=== PATIENT | male | born 2000 | race Hispanic/Latino ===

== ENCOUNTER 2019-09-29 15:59 | Inpatient (IN) ==
[2019-09-29] MEDS ORDERED: ZOFRAN IV ONE (16:21)
[2019-09-29] MEDS ORDERED: MORPHINE IV ONE (16:21)
--- NOTE | 2019-09-29 16:30 | PROVIDER DOCUMENTATION ---
HPI-Abdominal Pain/GI Problem - General Chief Complaint: Abdominal Pain Stated Complaint: ABD PAIN Time Seen by Provider: 09/29/19 16:06 Source: patient Allergies/Adverse Reactions: Patient Allergies Allergy/AdvReac Type Severity Reaction Status Date / Time No Known Allergies Allergy Verified 09/29/19 16:12 Home Medications: Home Medication List Medication Instructions Recorded Confirmed Last Taken Type NK [No Home Medications] 09/29/19 09/29/19 Unknown History - History of Present Illness-ABD Nature of Presenting Problems: Patient is a 18 yom who c/o RLQ abdominal pain since yesterday. Denies n/v/d, sick contacts, recent travel. Denies fever or any other complaints. Review of Systems - Adult - REVIEW OF SYSTEMS - ADULT Constitutional: reports: no symptoms reported Eyes: reports: no symptoms reported Ears, Nose, Mouth & Throat: reports: no symptoms reported Cardiovascular: reports: no symptoms reported Respiratory: reports: no symptoms reported Gastrointestinal: reports: see HPI Genitourinary: reports: no symptoms reported, other (denies testicular pain). denies: dysuria, discharge, frequency Musculoskeletal: reports: no symptoms reported Integumentary: reports: no symptoms reported Neurological: reports: no symptoms reported Psychiatric: reports: no symptoms reported Endocrine: reports: no symptoms reported Hematologic/Lymphatic: reports: no symptoms reported Allergic/Immunologic: reports: no symptoms reported All Other Systems: Reviewed and Negative Past History - Adult - PAST MEDICAL HISTORY-ADULT Review of Records: reports: Nursing Assessment Review, Medications Reviewed, Social history reviewed & non-contributory. Major Childhood Illnesses: reports: denies history Cardiovascular: reports: denies history Respiratory: reports: denies history Gastrointestinal: reports: denies history Genitourinary: reports: denies history Musculoskeletal: reports: denies history Neurological: reports: denies history Psychiatric: reports: denies history Endocrine/Immune: reports: denies history Other Conditions: reports: denies history - PRIOR SURGERIES/PROCEDURES Surgical/Procedure History: reports: none - IMMUNIZATION STATUS Childhood Immunizations: See Nurse Assessment Flu Vaccine: See Nurse Assessment - FAMILY HISTORY Family History: reviewed, not pertinent - SOCIAL HISTORY Smoking: non-smoker Substance Use: none/never Alcohol Use Frequency: never Physical Exam-General - PHYSICAL EXAM-ADULT Initial Vital Signs Reviewed: Yes - CONSTITUTIONAL General Appearance: alert, no apparent distress, cachetic. negative: lethargic, slow to respond - EYES Eyes: PERRL/EOMI - HEAD, EARS, NOSE, MOUTH & THROAT HENMT: normocephalic/atraumatic - NECK Neck: full range of motion, supple, normal inspection - RESPIRATORY Respiratory: chest non-tender, lungs clear, normal breath sounds, no pleuratic chest pain, no respiratory distress, no accessory muscle use - CARDIOVASCULAR Cardiovascular: normal peripheral pulses, regular rate, rhythm, no gallop, no murmur, tachycardia - GASTROINTESTINAL (ABDOMEN) Abdominal Exam: normal bowel sounds, soft, guarding (entire right side of abdomen, more in RLQ), tenderness (see note above), McBurney's point tenderness. negative: distended, rigid, mass - GENITOURINARY Male Genitalia: normal genitalia. negative: inguinal lymphadenopathy, scrotal swelling, urethral discharge, inguinal tenderness, testicular tenderness Rectal Exam: normal rectal tone, mass (rectal exam performed by Dr. Mcdonald who reports rectal mass). negative: black stool, blood streaked stool - MUSCULOSKELETAL Back Exam: normal inspection Extremity: normal range of motion, non-tender, normal gait, normal inspection - SKIN Integumentary: normal color, warm/dry. negative: cyanosis, diaphoresis, jaundice, mottled, pallor - NEUROLOGIC Neurologic: grossly normal, no motor/sensory deficits - PSYCHIATRIC Psych/Mental Status: normal mood/affect, normal thought content, normal thought process, oriented x 3 Progress - PLAN OF CARE/RESULTS Progress/Plan/Lab Results: Vital Signs - 8 hr 09/29/19 16:03 Temperature 98.4 F Pulse Rate 126 H Respiratory Rate 20 Blood Pressure 105/63 O2 Sat by Pulse Oximetry 98 Orders Category Date Time Status NEWS Score 2-4:Order NEWS Lactate Series NOW Care 09/29/19 16:[address] ABD/PELVIS W/IV CONT ONLY [CT] Stat Exams 09/29/19 16:21 Ordered BLOOD CULTURE [BLDCUL] Stat Lab 09/29/19 16:21 Uncollected CBC WITH DIFF [HEME] Stat Lab 09/29/19 16:21 Ordered COMPREHENSIVE METABOLIC PANEL [CHEM] Stat Lab 09/29/19 16:21 Uncollected LACTATE, PLASMA [CHEM] Lab 09/29/19 16:15 Uncollected LACTATE, PLASMA [CHEM] Lab 09/29/19 19:15 Uncollected LACTATE, PLASMA [CHEM] Lab 09/29/19 22:15 Uncollected LIPASE [CHEM] Stat Lab 09/29/19 16:21 Uncollected UA NIMS W/REFLEX CULT [URINALYSIS] Stat Lab 09/29/19 16:21 Uncollected Morphine Med 09/29/19 16:21 Discontinued 4 mg IV NOW ONE Ondansetron [Zofran] Med 09/29/19 16:21 Discontinued 4 mg IV NOW ONE EKG [EKG] Stat Ther 09/29/19 16:08 Ordered Result Diagrams: 09/29/19 16:25 09/29/19 16:25 - REASSESSMENT Reassessment #1 Time Reassessed: 19:09 Status: improving (Pain improved with meds. Dr. Drake evaluated pt in the ED. Discussed results with pt. Pt in agreement with plan to admit.) - EKG 1 Time of EKG reading by physician:: 16:10 EKG Read and Signed by:: Clemente Mcdonald EKG Interpretation (*Must complete 3 of following elements*): Abnormal Rate: 136 Rhythm: sinus tachycardia QRS: normal ST Wave: normal - CT/MRI 1 CT Study: Abdomen, Pelvis ([facility] - [address] [place], [place] [id number] [place] [address] [address] [place] [address] Department of Imaging Patient: LUDWIG BONILLADM Date: 09/29/19MR#: [id number] : 2000ADM Status: [facility]#: [id number] Age/Sex: 18/MRoom/Bed: Loc: P.ED Ordering Physician: Christopher Mathews Family Physician: None,PCP Reason for Procedure: RLQ pain/tenderness ___ Signed EXAM: CT ABD/PELVIS W/IV CONT ONLY INDICATION: RLQ pain/tenderness TECHNIQUE: This exam was performed using automated exposure control, adjustment of mA or kV according to patient size, and/or use of iterative reconstruction technique. COMPARISON: None. FINDINGS: There is an extremely large and irregular mass seen in the lower abdomen and pelvis. It arises from the wall of a loop of small bowel. There is fluid and patchy gas through the center of the mass corresponding to the original small bowel lumen. It measures approximately 16.0 x 9.8 x 16.9 cm. The top differential conside ration is small bowel lymphoma. There are fluid-filled loops of small bowel throughout the abdomen with a few air-fluid levels suggesting that it is causing at least partial obstruction. The mass is also obstructing both ureters and there is associated bilateral hydronephrosis. There is no splenomegaly. The liver and gallbladder are unremarkable. The pancreas is grossly unremarkable. The adrenal glands are not well-visualized. The urinary bladder is partially distended. The visualized portion is unremarkable. There are a few small shotty inguinal lymph nodes. The visualized bony structures are unremarkable. IMPRESSION: Very large mass that appears to arise from the wall of a loop of small bowel involving the lower abdomen and pelvis that is causing at least a partial bowel obstruction and is obstructing both ureters resulting in hydronephrosis bilaterally. Small bowel lymphoma is the top differential consideration. A gastrointestinal stromal tumor would be very unlikely in this age group. Electronically signed by Aramis Leal 09/29/2019 6:26 PM 09/29/19 1826 Interpreting Physician: Aramis Leal MD Dictated Date/Time: 09/29/19 1806 cc: Christopher Mathews; None,PCP) - CONSULTS/PCP/HOSPITALIST Notification #1 *Consult/PCP/Hospitalist*: Dr. Drake Time Discussed: 18:40 Reason/Comments: partial SBO, abdominal mass Consult Disposition: Will see in ED (Dr. Mcdonald spoke with income tax consultant) #2 Consult: Dr. Nguyen Time Discussed: 18:43 Reason/Comments: admit- abdominal mass, anemia Consult Disposition: Will see in ED, Admit Departure - Departure Date of Disposition Decision: 09/29/19 Time of Disposition Decision: 18:00 DIAGNOSIS: Pelvic mass, Pancytopenia Abdominal mass Qualifiers: Abdominal location: unspecified location Qualified Code(s): R19.00 - Intra- abdominal and pelvic swelling, mass and lump, unspecified site Anemia Qualifiers: Anemia type: unspecified type Qualified Code(s): D64.9 - Anemia, unspecified Sepsis Qualifiers: Sepsis type: sepsis due to unspecified organism Sepsis acute organ dysfunction status: unspecified Qualified Code(s): A41.9 - Sepsis, unspecified organism Abdominal pain Qualifiers: Abdominal location: unspecified location Qualified Code(s): R10.9 - Unspecified abdominal pain Disposition: ADMITTED INPATIENT 09 Certified Medical Emergency: Emergent Condition: Serious Referrals and Follow-Ups: None,PCP [Primary Care Provider] - - Critical Care Note This patient required my direct & personal management of CC.: Yes Total Time (mins): 45 Critical Care Statement: This patient required my direct personal management to treat or rule out processes, the absence of which, could potentiallly result in sudden, clinically significant life or limb threatening deterioration. Attestation - Physician/ STEVE Attestation Patient care was provided by Advanced Practice Provider:: Yes Advanced Practice Provider:: Christopher Mathews Advanced Practice Provider documentation review:: The Mid-level provider documentation, treatment plan and medical decision making was reviewed by the physician who agrees with all treatment and medical decision making by the P. The physician spent face to face time with patient:: Yes (Dr. Mcdonald) Advanced Practice Provider documentation review:: Supervising physician onsite and consulted in the evaluation and care of this patient. The physician did have a face to face encounter with the patient.
[2019-09-29] MEDS ORDERED: NS 1,000 ML IV ONE ×3 (16:37→21:00)
[2019-09-29 17:16] LABS: AGAP 18; ALBUMIN 3.3 g/dL (3.5-5.0); ALKALINE PHOSPHATASE 189 U/L (32-122); BUN 10 mg/dL (8-22); CALCIUM 8.3 mg/dL (8.8-10.2); CHLORIDE 92 mmol/L (98-107); COSMO 262; CREATININE 0.7 mg/dL (0.7-1.2); ESTIMATED GFR > 60; GLUCOSE 99 mg/dL (70-104); GOT 135 U/L (10-34); GPT 66 U/L (10-44); LIPASE 16 U/L (13-60); POTASSIUM 4.4 mmol/L (3.5-5.1); SODIUM 131 mmol/L (136-145); TCO2 22 mmol/L (25-35); TOTAL PROTEIN 7.2 g/dL (6.3-8.3)
[2019-09-29 17:17] LABS: BASO# 0.03 X1000 (0.0-0.2); BASO% 0.1 % (0.0-0.8); EOS# 0.07 X1000 (0.0-0.7); EOS% 0.3 % (0.0-10.0); HEMATOCRIT 17.4 % (42.0-52.0); IMM GRAN# 0.16 X1000 (0.0-0.04); IMM GRAN% 0.7 % (0.0-0.5); LYMPH# 2.87 X1000 (1.2-3.4); LYMPH% 13.3 % (20.5-51.1); MCH 23.5 PG (27-31); MCHC 28.7 g/dL (33-37); MCV 81.7 FL (81-99); MONO% 12.5 % (1.7-9.3); MPV 8.8 FL (7.4-10.4); NEUT% 73.1 % (42.2-75.2); PLT 678 X1000 (130-400); RBC 2.13 XMIL (4.7-6.1); RDW 17.1 % (11.5-14.5); WBC 21.63 X1000 (4.8-10.8)
[2019-09-29 17:31] LABS: RETIC% 5.02 % (0.8-2.1); RETIC-HE 22.2 PG (28.2-36.6)
--- NOTE | 2019-09-29 17:45 | EKG Report ---
Test Performed on : 09/29/2019 4:09:42 PM Test Reason : tachycardia Blood Pressure : / mmHG Vent. Rate : 136 BPM Atrial Rate : 136 BPM P-R Int : 128 ms QRS Dur : 064 ms QT Int : 280 ms P-R-T Axes : 062 063 062 degrees QTc Int : 421 ms Sinus tachycardia. Otherwise normal ECG No previous ECGs available Unconfirmed Result
[2019-09-29] MEDS ORDERED: NS IV ONE ×2 (17:54)
[2019-09-29] MEDS ORDERED: ZOSYN 3.375 GM in NS 50 ML IV ONE (17:55)
[2019-09-29 18:00] LABS: OCCULT BLOOD 1 NEGATIVE (NEGATIVE)
[2019-09-29] MEDS ORDERED: LEVOPHED 8 MG in D5 1/2 NS 250 ML IV SCH (18:00)
[2019-09-29] MEDS ORDERED: PITRESSIN 40 UNIT in NS 100 ML IV SCH (18:00)
[2019-09-29] MEDS ORDERED: EPINEPHRINE 4 MG in NS 250 ML IV SCH (18:00)
[2019-09-29 18:19] LABS: URINE SOURCE CLEAN CATCH
[2019-09-29 18:24] LABS: INR 1.17; PROTIME 15.5 Seconds (11.0-16.0)
[2019-09-29 18:25] LABS: BILIRUBIN URINE NEGATIVE (NEGATIVE); BLOOD URINE NEGATIVE (NEGATIVE); COLOR YELLOW; GLUCOSE URINE NEGATIVE (NEGATIVE); KETONE URINE NEGATIVE (NEGATIVE); LEUKOCYTES URINE NEGATIVE (NEGATIVE); NITRITE URINE NEGATIVE (NEGATIVE); PH URINE 6.5; PROTEIN URINE 50 mg/dL (NEGATIVE); SP GRAVITY URINE 1.022; TURBIDITY URINE HAZY (CLEAR); UROBILINOGEN URINE 3 mg/dL (NORMAL)
[2019-09-29 18:25] LABS: PTT 31.3 Seconds (22.3-41.8)
--- NOTE | 2019-09-29 18:29 | Diag Imaging Result Doc PS360 ---
EXAM: CT ABD/PELVIS W/IV CONT ONLY INDICATION: RLQ pain/tenderness TECHNIQUE: This exam was performed using automated exposure control, adjustment of mA or kV according to patient size, and/or use of iterative reconstruction technique. COMPARISON: None. FINDINGS: There is an extremely large and irregular mass seen in the lower abdomen and pelvis. It arises from the wall of a loop of small bowel. There is fluid and patchy gas through the center of the mass corresponding to the original small bowel lumen. It measures approximately 16.0 x 9.8 x 16.9 cm. The top differential consideration is small bowel lymphoma. There are fluid-filled loops of small bowel throughout the abdomen with a few air-fluid levels suggesting that it is causing at least partial obstruction. The mass is also obstructing both ureters and there is associated bilateral hydronephrosis. There is no splenomegaly. The liver and gallbladder are unremarkable. The pancreas is grossly unremarkable. The adrenal glands are not well-visualized. The urinary bladder is partially distended. The visualized portion is unremarkable. There are a few small shotty inguinal lymph nodes. The visualized bony structures are unremarkable. IMPRESSION: Very large mass that appears to arise from the wall of a loop of small bowel involving the lower abdomen and pelvis that is causing at least a partial bowel obstruction and is obstructing both ureters resulting in hydronephrosis bilaterally. Small bowel lymphoma is the top differential consideration. A gastrointestinal stromal tumor would be very unlikely in this age group. Electronically signed by Aramis Leal 09/29/2019 6:26 PM
--- NOTE | 2019-09-29 18:34 | Diag Imaging Result Doc PS360 ---
EXAM: CHEST-1 VIEW INDICATION: sepsis protocol TECHNIQUE: One view COMPARISON: 07/29/2018 FINDINGS: The lungs are grossly clear. There is no discrete pleural fluid collection or pneumothorax. The cardiomediastinal silhouette and central vasculature are grossly unremarkable. IMPRESSION: No evidence of acute pathology by plain radiograph. Electronically signed by Aramis Leal 09/29/2019 6:32 PM
[2019-09-29 18:36] LABS: LYMPHS 13 % (21-51); MONO 13 % (1-9); SEGS 74 % (42-75)
[2019-09-29 18:37] LABS: UR EPITHELIAL CELLS <10 /HPF (<10); URINE BACTERIA NEGATIVE /HPF; URINE RBC <10 /HPF (<10); URINE WBC <10 /HPF (<10)
[2019-09-29 18:58] LABS: URINE CASTS NONE SEEN; URINE CRYSTALS NONE SEEN; URINE SMALL ROUND CELLS NONE SEEN; URINE YEAST NONE SEEN
[2019-09-29] MEDS ORDERED: DILAUDID IV PRN (19:28)
[2019-09-29] MEDS ORDERED: NS 1,000 ML ONE (19:33)
[2019-09-29] MEDS ORDERED: ZOFRAN IV PRN (19:33)
--- NOTE | 2019-09-29 20:00 | GENERAL SURGERY CONSULTATION ---
DATE: 09/29/2019 REQUESTING PHYSICIAN: Emergency Department. REASON FOR CONSULTATION: Abdominal mass. HISTORY OF PRESENT ILLNESS: A 18-year-old gentleman who presented with a day history of right lower quadrant abdominal pain. Denied nausea, vomiting, sick contacts, recent travel. He says the bowel movements have been normal. He was seen emergency department, had a CT scan that showed a 16 cm mass. The concern is that it is rising from a small bowel causing significant compression of the right his pelvis transmitting hydronephrosis to his kidneys bilaterally and it looks like it is obstructing his sigmoid colon. He is also noted to be significantly anemic, but he was Hemoccult negative. PAST MEDICAL HISTORY: None. PAST SURGICAL HISTORY: None. SOCIAL: Nonsmoker. ALLERGIES: None reported. HOME MEDICATIONS: None. FAMILY HISTORY: Reviewed with the patient and noncontributory. REVIEW OF SYSTEMS: A full 14 systems reviewed are negative except those specified in HPI. PHYSICAL EXAMINATION: Vital Signs: Patient is currently afebrile. He is tachycardic in the 130s. Blood pressure 104/49. General Exam: Cachectic looking gentleman, looks stated age. HEENT: Normocephalic, atraumatic. Pupils equal, round, reactive to light. Mucous membranes moist. Oropharynx benign. Neck: Supple. Trachea midline. Cardiovascular: Regular rate and rhythm. Lungs: Grossly clear. Abdomen: Soft. A palpable mass noted in the pelvis. Some tenderness in the right lower quadrant. No peritoneal signs. Extremities: Moves all extremities. Neurologic: Grossly intact. Skin: No signs of jaundice. Vascular: All extremities perfused. Digital Rectal Exam: There is what appears to be a mass either in the rectum or protruding down to the rectum. LABORATORY: White blood count 21, hematocrit 17, hemoglobin 5, platelet count 678,000. Remainder of labs reviewed. CT scan reviewed and noted above. ASSESSMENT AND PLAN: A 18-year-old gentleman with pelvic mass. Pelvic mass. At this time, we will get him admitted across town and resuscitate him. This does appear to be potentially coming from the small bowel, although, it is really hard to see on the CT scan. We may have to review with the radiologist in person tomorrow. We will go ahead and consult Urology because I think he is probably going to at least stents. There is a high degree of concern he is going to need exploratory laparotomy and require some degree of significant small bowel resection. If not, pelvic exoneration depending on how stuck everything is. I had a discussion with the patient about this possibility and that he may need an ostomy. He is aware, but again, we will try to resuscitate him and see how he does for the course tonight and plan for surgical intervention in the morning. cc: Juanito Drake MD
[2019-09-29] MEDS ORDERED: TYLENOL PO ONE (20:09)
[2019-09-29] MEDS ORDERED: VANCOMYCIN IV PER PHARMACY MISC SCH (20:15)
[2019-09-29 20:32] LABS: IRON SATURATION 4 %; TIBC 156 ug/dL
[2019-09-29 20:33] LABS: TOTAL IRON 7 ug/dL (53-167); UNBOUND IRON 149 ug/dL (112-346)
[2019-09-29] MEDS ORDERED: VANCOMYCIN 1,700 MG in NS 250 ML IV ONE (22:00)
[2019-09-29] MEDS: PRILOSEC PO SCH (22:49)
[2019-09-29 23:35] LABS: FERRITIN 680 ng/mL (30-400)
--- NOTE | 2019-09-29 23:49 | HISTORY AND PHYSICAL ---
PRIMARY CARE PHYSICIAN: No primary care physician. REASON FOR ADMISSION: One-day history of right lower quadrant pain. HISTORY OF PRESENT ILLNESS: Mr. Nolan Kenyon is a 18-year-old male with no significant past medical history. Comes in today complaining of sudden cramping, constant right lower quadrant pain, nonradiating which got worse whenever he tried to move. No relieving factors. No fever. No chills. No altered bowel movements. No bleeding from any orifice. No melanotic stools. No genitourinary complaints. No cardiorespiratory complaints. No neurological complaints. No polyuria or polydipsia. Says that he subjectively has lost some weight as his clothes fit more loosely on him. He denies any nausea or vomiting. He denies any dizziness or shortness of breath. No palpitations. No facial flushing. Currently not on any medication. REVIEW OF SYSTEMS: Twelve system review was done. Positive findings per HPI. ALLERGIES: None. MEDICATIONS: None. SURGERIES: None. FAMILY HISTORY: None. SOCIAL HISTORY: None. LABORATORY WORK: The patient's labs are as follows: White count is 21,000, hemoglobin and hematocrit 5 and 17, platelet count is 678,000 with 13% monocytes. Sodium 131, BUN 10, creatinine 0.7. Iron 7, TIBC 156, 4% saturation. Lactate normal. Lipase normal. AST 135, ALT 66, alkaline phosphatase 189. s normal. Urinalysis, protein is 50. CT abdomen showed a very large mass appearing to arise from the wall of the small bowel involving the lower abdomen and pelvis causing partial bowel obstruction and is obstructing both ureters hydronephrosis bilaterally. Small bowel lymphoma possible versus GIST tumor as possible differentials. Chest film, no acute pathology noted. PHYSICAL EXAMINATION: GENERAL: Thin male. VITAL SIGNS: Temperature of 101.4 degrees, pulse rate was 121, respiratory rate 16, blood pressure 106/65, 100% on room air. He is alert and oriented to person place and time Normal mood and affect. HEENT: Head is normocephalic, atraumatic. Eyes, BLAIR, EOMI. He is anicteric and mildly pale. ENT and oropharynx exam are grossly normal. No central cyanosis. NECK: Supple. There are a few shotty mobile lymph nodes in the supraclavicular, cervical, posterior cervical chain and axillary chain. CHEST: Clear when auscultated in both lung ramirez. CARDIOVASCULAR: First and second heart sounds are heard. The 1st heart sound is very loud and possible ejection systolic murmur in the pulmonic area. Rhythm is regular. No gallops. ABDOMEN: Scaphoid, soft with tenderness confined to the right lower quadrant area and I cannot appreciate any mass on deep palpation although the patient was voluntarily guarding. No rebound appreciated. Bowel sounds are hypoactive. RECTAL: Exam deferred at this time. EXTREMITY: The patient has good distal pulse volumes, regular, symmetrical. No edema, clubbing or cyanosis. NEUROLOGICAL: Exam is normal. SKIN: Intact. No breakdown, lesion or erythema. Skin exam is grossly normal. ASSESSMENT: 1. 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 2. Anemia, iron deficiency anemia probably secondary to a chronic GI blood loss from #1. 3. Elevated transaminases. Etiology yet to be determined, remote possibility of metastatic disease to liver. 4. Obstructive uropathy. PLAN: Dr. Drake has seen patient and we have consulted Dr. Romero due to the fact the patient has obstructive uropathy from this mass and Dr. Drake will also to consult Dr. Mireles. We will start patient on empiric antibiotics. Treat patient symptomatically pending a formal plan for this patient. The patient has scattered lymphadenopathy in the aforementioned areas in my exam and if tissue diagnosis may be a problem, which I doubt, these alternative sites could be, especially in the axilla, may be alternative and may also assist in staging and I think rest of anemia workup has been ordered and will need to be followed up. CEA was also ordered although I doubt this is going to be elevated. cc: Jarod Maradiaga MD [facility]ITALConrado
[2019-09-30] MEDS: ZOSYN 3.375 GM in NS 50 ML IV SCH ×4 (00:45→17:32)
--- NOTE | 2019-09-30 06:40 | GENERAL SURGERY PROGRESS NOTE ---
DATE: 09/30/2019 SUBJECTIVE: The patient seems to be doing a little bit better. He has been resuscitated. His heart rate seems to be improving. OBJECTIVE: Vital Signs: The patient is currently afebrile. Vital signs are stable. General Examination: No acute distress. HEENT: Normocephalic and atraumatic. Pupils equal, round, reactive to light. Mucous membranes moist. Oropharynx benign. Neck: Supple. Trachea midline. Cardiovascular: Regular rate and rhythm. Lungs: Grossly clear. Abdomen: Soft. Less tender. Mass still palpated in the lower abdomen. ASSESSMENT/PLAN: A 18-year-old gentleman with a large pelvic mass. Pelvic mass. At this time, it does look like it is potentially coming from small bowel. We will discuss with the radiologist. We will discuss with the urologist. We will plan on exploratory laparotomy today. He is resuscitated and I think we can get it done here this morning. I discussed with him the risks, benefits, and alternatives of the procedure, risks including, but not limited to bleeding, infection, risk of anesthesia, risk of small bowel injury, colonic injury, risk of anastomotic leak, risk of needing a colostomy, risk of injury to surrounding structures including his ureters, but we will try to get urology to see him and placed stents. Discussed that other structures down in his pelvis could be injured. He voiced understanding and wishes to proceed. cc: Juanito Drake MD
[2019-09-30 07:01] LABS: AGAP 14; ALB/GLOB RATIO 0.8; ALBUMIN 2.7 g/dL (3.5-5.0); ALKALINE PHOSPHATASE 161 U/L (32-122); BUN 11 mg/dL (8-22); CALCIUM 8.6 mg/dL (8.8-10.2); CHLORIDE 100 mmol/L (98-107); COSMO 266; CREATININE 0.7 mg/dL (0.7-1.2); ESTIMATED GFR > 60; GLUCOSE 75 mg/dL (70-104); GOT 40 U/L (10-34); GPT 45 U/L (10-44); POTASSIUM 3.9 mmol/L (3.5-5.1); SODIUM 134 mmol/L (136-145); TCO2 20 mmol/L (25-35); TOTAL BILIRUBIN 1.36 mg/dL (0.20-1.00); TOTAL PROTEIN 6.2 g/dL (6.3-8.3)
[2019-09-30 07:06] LABS: BASO# 0.04 X1000 (0.0-0.2); BASO% 0.1 % (0.0-0.8); EOS# 0.13 X1000 (0.0-0.7); EOS% 0.5 % (0.0-10.0); HEMATOCRIT 25.7 % (42.0-52.0); HEMOGLOBIN 7.8 g/dL (14.0-18.0); IMM GRAN# 0.27 X1000 (0.0-0.04); LYMPH# 1.82 X1000 (1.2-3.4); LYMPH% 6.8 % (20.5-51.1); MCH 24.9 PG (27-31); MCHC 30.4 g/dL (33-37); MCV 82.1 FL (81-99); MONO# 3.28 X1000 (0.11-0.59); MONO% 12.2 % (1.7-9.3); MPV 8.9 FL (7.4-10.4); NEUT# 21.42 X1000 (1.4-6.5); NEUT% 79.4 % (42.2-75.2); PLT 611 X1000 (130-400); RBC 3.13 XMIL (4.7-6.1); RDW 16.4 % (11.5-14.5); RETIC% 3.95 % (0.8-2.1); RETIC-HE 27.5 PG (28.2-36.6); WBC 26.96 X1000 (4.8-10.8)
[2019-09-30] MEDS ORDERED: ROBINUL ONE (07:37)
[2019-09-30] MEDS ORDERED: DIPRIVAN 1% ONE (07:37)
[2019-09-30] MEDS ORDERED: XYLOCAINE-MPF 2% ONE (07:37)
[2019-09-30] MEDS ORDERED: QUELICIN (DOSE) ONE (07:37)
[2019-09-30 07:58] LABS: BANDS 8 % (0-1); HYPOCHROM 1+; LYMPHS 10 % (21-51); MONO 8 % (1-9); SEGS 74 % (42-75)
[2019-09-30] MEDS ORDERED: MARCAINE 0.5% PF ONE (08:09)
[2019-09-30] MEDS ORDERED: EXPAREL 1.3% ONE (08:10)
[2019-09-30] MEDS ORDERED: MARCAINE 0.25% PF ONE (08:12)
[2019-09-30] MEDS ORDERED: VERSED ONE ×2 (08:26→12:12)
[2019-09-30] MEDS ORDERED: ALBUMIN 25% ONE (08:46)
[2019-09-30] MEDS ORDERED: NEOSPORIN OINTMENT PACKET ONE (09:03)
--- NOTE | 2019-09-30 09:58 | Diag Imaging Result Doc PS360 ---
FLUROSCOPY CYSTO - 09/30/2019 INDICATION: STENTS TECHNIQUE: The exam was performed by the patient's urologist. Total fluoroscopy time was 9.8 seconds. Three images were obtained. COMPARISON: CT from 09/29/2019 FINDINGS: The ureters were injected. This demonstrated bilateral hydronephrosis. Bilateral nephroureteral stents were placed in good position. IMPRESSION: Bilateral hydronephrosis. No complication. Electronically signed by Martinez Baker 09/30/2019 9:56 AM
[2019-09-30] MEDS ORDERED: ZOFRAN ONE ×2 (10:00→12:27)
[2019-09-30] MEDS ORDERED: VANCOMYCIN 1,350 MG in NS 250 ML IV SCH (10:00)
[2019-09-30] MEDS ORDERED: DECADRON ONE (10:00)
[2019-09-30] MEDS ORDERED: ZEMURON ONE (10:01)
[2019-09-30] MEDS ORDERED: NEO-SYNEPHRINE ONE (10:11)
[2019-09-30] MEDS ORDERED: DILAUDID ONE (10:28)
[2019-09-30] MEDS ORDERED: OFIRMEV 1000 MG/ISOTONIC SOLN 1,000 MG/100 ML BOTTLE ONE ×2 (11:00→12:29)
[2019-09-30] MEDS ORDERED: BRIDION ONE (11:42)
[2019-09-30] MEDS ORDERED: PHENERGAN ONE (11:47)
--- NOTE | 2019-09-30 12:23 | OPERATIVE NOTE ---
PROCEDURE DATE: 09/30/2019 PREOPERATIVE DIAGNOSIS: Small bowel mass. POSTOPERATIVE DIAGNOSIS: Small bowel mass (possible lymphoma). PROCEDURES PERFORMED: 1. Exploratory laparotomy. 2. Right hemicolectomy with stapled [id number] functional end-to-end anastomosis. 3. Tumor debulking. 4. Rigid proctoscopy. SURGEON: Juanito Drake MD PHOTOENGRAVING PHOTOGRAPHER: Inocencio Person MD; Dr. Person assisted with the entirety of the case. His presence was crucial to completion of the case. FINDINGS: Questionable lymphoma on pathology, which was bulky in nature and stuck to the pelvis. It was also very friable and extended from it sounded like the side and felt like the side of the small bowel in the terminal ileum. COMPLICATIONS: None at time of dictation. ESTIMATED BLOOD LOSS: 500 mL. SPECIMEN REMOVED: Terminal ileum and right colon mass. BRIEF HISTORY: A 18-year-old gentleman who came to [facility] last night with abdominal pain and anemia. He is noted to have a mass that is near obstructing. He also had ureteral issues with hydronephrosis bilaterally. It was felt that he needed surgery. The risks, benefits, and alternatives were discussed and documented in the chart, all questions answered. DESCRIPTION OF PROCEDURE: After informed consent was obtained, the patient was brought to the operative theatre, transferred to the operating table and placed in the supine position. General endotracheal anesthesia was then performed without complication. A formal time out was then performed confirming the patient and procedure. At that time, Dr. Guzmán with Urology performed a cystoscopy and placed stents. You can see his dictation for further details. At that point, we prepped the abdomen for a TAP block, which anesthesia did without complication. We then prepped and draped the abdomen in a sterile fashion, placed the patient in lithotomy. After a second time out, confirming the patient and procedure, we turned our attention to the abdomen, made a standard midline incision to enter into the abdomen. We found this mass down in the pelvis. It was significantly adherent to several structures down the pelvis. It took us some time with meticulous dissection to get the mass freed up. We did get into the small bowel secondary to the friable aspect of the tumor burden in the small bowel, and we drained some succus, but we irrigated out the abdomen. We mobilized the right colon fully while preserving the duodenum. We transected at the ascending colon. We also transected in the mid ileum to distal ileum. We dissected the mass free. We had to do a lot of finger fracturing. It was intimately connected to the sigmoid colon, the ureters, the iliac arteries, the bladder, and down the pelvis all the way down to the distal rectum to the point that we did not think we could safely remove without injuring several of these structures. We were able to feel the ureteral stents, especially on the right side, and we were able to preserve these structures, but it was very close to other major structures and we felt that all we could do at this point was tumor debulking, which we did as much as we could. We did send the specimen down for pathology, which showed potential for lymphoma. We removed the mass after transecting in the terminal ileum and the right colon. We debulked a significant amount, but there is still a good amount of tumor burden in the abdomen. We irrigated out the abdomen. We examined the structures. I do not think we heard anything, but again felt as though if we did any further dissection we would. We then performed a stapled anastomosis. Given the close proximity to the sigmoid colon and concern for possible injury we performed a rigid proctoscopy. I inserted the proctoscope into the rectum. We placed the sigmoid colon under water and filled the rectum with air. We did not see any leak to suggest injury to the rectum or sigmoid colon. We oversewed the staple line, closed the mesenteric defect. We then irrigated out the abdomen. We elected to not leave a drain down in the pelvis because we thought we might feed the drain site given the debulking aspect. We then closed the fascia with a running loop PDS started on either side and then closed the skin. The patient tolerated the procedure well. cc: MD RACHEL Luna
[2019-09-30] MEDS ORDERED: DILAUDID PCA VIAL ONE (12:27)
[2019-09-30] MEDS ORDERED: TORADOL ONE (12:27)
--- NOTE | 2019-09-30 12:36 | OPERATIVE NOTE ---
PROCEDURE DATE: 09/30/2019 PREOPERATIVE DIAGNOSES: 1. Pelvic mass. 2. Bilateral hydronephrosis. POSTOPERATIVE DIAGNOSES: 1. Pelvic mass. 2. Bilateral hydronephrosis. PROCEDURE PERFORMED: 1. Cystoscopy. 2. Bilateral retrograde pyelograms. 3. Bilateral ureteral stent placement. SURGEON: Chris Guzmán MD. ASSISTANTS: None. COMPLICATIONS: None. BLOOD LOSS: Minimal. DRAINS: Bilateral 6 x 24 cm ureteral stent. ANESTHESIA: General endotracheal intubation. SPECIMENS REMOVED: None. INDICATIONS FOR PROCEDURE: Mr. Kenyon is a 18-year-old who presented to the emergency room complaining of right abdominal pain. A CT scan was performed which showed a large pelvic mass measuring over 16 cm, causing mass effect on bilateral ureters. Urology was consulted due to bilateral hydronephrosis. The patient had a normal renal function with a creatinine of 0.7. In talking with Dr. Drake, he desired placement of ureteral stents in preparation for open exploration and resection of pelvic mass. Risks, benefits, and alternatives to the procedure were discussed with the patient in the preop holding area and he elected to proceed. DESCRIPTION OF PROCEDURE: After informed consent was obtained, the patient was brought to the operating room and placed on the operating table in the supine position. The patient received preoperative antibiotics and underwent general endotracheal intubation. He was positioned to a dorsal lithotomy position, was prepped and draped in the usual sterile fashion. A preoperative time-out was performed with all parties in agreement including anesthesia, surgical, and nursing staff. At which point I inserted a 21-Peruvian cystourethroscope through the urethra and into the bladder. The patient had a normal urethra. There was a small prostate with no evidence of obstruction. Once inside of the bladder, the entirety of the bladder was inspected with no diverticulum, cellules, or trabeculations. There was a slight mass effect posteriorly related to a mass external to the bladder itself. The ureteral orifices were inferior and likely present inferiorly due to the mass effect. Once the entirety of the bladder was inspected with no masses in the bladder itself, an open-ended catheter was passed through the scope, flushed of all bubbles, and the left ureteral orifice was cannulized and injected with Omnipaque which showed a very torturous ureter with evidence of moderate hydronephrosis but no obvious filling defects. A small amount of drainage was seen from the collecting system on post drainage films. Attention was placed to the right side. A similar procedure performed, which showed an even more tortuous ureter with moderate hydronephrosis. A ZIPwire was passed through the open-ended catheter and up into the right kidney itself. The ZIPwire was then placed. The open-ended catheter was removed and a 6 x 24 cm stent was advanced over the wire with good curl in the collecting system, endoscopically visualized in the bladder. Good drainage was seen through and around the stent. Attention was then placed to the left side. The wire was passed through the ureteral orifice and up into the kidney itself. The wire was left in place. Then a 6 x 24 cm stent was advanced over the wire with good curl in the kidney, endoscopically visualized in the bladder. Again, good drainage was seen through and around the stent. The patient's bladder was left full. A 16-Peruvian Willams catheter was inserted through the urethra and into the bladder, inflated with 10 mL of sterile water and placed to gravity drainage. At which time the patient's care was transitioned back to Dr. Drake for his portion of the procedure. Please see is dictated note for the continued care of the patient. DISPOSITION: Will keep indwelling stents in place awaiting further cancer treatments, if has a good response to his therapies could consider removal of stents. cc: Chris Guzmán MD [facility]
[2019-09-30] MEDS ORDERED: LR 1,000 ML ONE (12:57)
[2019-09-30] MEDS ORDERED: PHENERGAN IV PRN (13:00)
[2019-09-30] MEDS ORDERED: NARCAN IV PRN (13:00)
[2019-09-30] MEDS ORDERED: BENADRYL IV PRN (13:00)
[2019-09-30] MEDS ORDERED: DILAUDID PCA VIAL IV PRN (13:00)
[2019-09-30] MEDS ORDERED: ZOFRAN IV PRN (13:00)
[2019-09-30 13:07] LABS: URINE SOURCE CATH
[2019-09-30 13:10] LABS: BILIRUBIN URINE NEGATIVE (NEGATIVE); BLOOD URINE LARGE (NEGATIVE); COLOR ORANGE; GLUCOSE URINE NEGATIVE (NEGATIVE); KETONE URINE NEGATIVE (NEGATIVE); LEUKOCYTES URINE TRACE (NEGATIVE); NITRITE URINE NEGATIVE (NEGATIVE); PH URINE 5.5; PROTEIN URINE 50 mg/dL (NEGATIVE); SP GRAVITY URINE 1.018; TURBIDITY URINE HAZY (CLEAR); UROBILINOGEN URINE NORMAL (NORMAL)
[2019-09-30 13:11] LABS: UR EPITHELIAL CELLS <10 /HPF (<10); URINE BACTERIA 1+ /HPF; URINE RBC TNTC /HPF (<10); URINE WBC TNTC /HPF (<10)
[2019-09-30] MEDS: LR 1,000 ML IV SCH (13:25)
--- NOTE | 2019-09-30 13:35 | CONSULTATION ---
DATE OF CONSULTATION: 09/30/2019 CHIEF COMPLAINT: Bilateral hydronephrosis. HISTORY OF PRESENT ILLNESS: The patient is a 18-year-old male who presented to the emergency room yesterday complaining of right lower quadrant abdominal pain with no evidence of nausea or vomiting or disease exposure. The patient says he has been having normal bowel movements and he was seen in emergency room by hospitalist and General Surgery. The patient had a CT scan performed which revealed a 16 cm mass arising from small bowel pressing on the right pelvis leading to bilateral hydronephrosis and change in the sigmoid colon. The patient was having anemia. Urology was consulted concerning the bilateral hydronephrosis and is going to the operating room for possible excision of the abdominal mass and placement of bilateral ureteral stents. General Surgery desired stents to help in localizing ureteral locations. PAST MEDICAL HISTORY: None. PAST SURGICAL HISTORY: None. SOCIAL HISTORY: No tobacco, alcohol or illicit drug use. ALLERGIES: None. HOME MEDICATIONS: None. FAMILY HISTORY: Denies family history. REVIEW OF SYSTEMS: Total review of systems performed without pertinent positives and negatives in HPI. PHYSICAL EXAMINATION: Vital signs: Temperature 97.8 degrees, heart rate 68, blood pressure 96/52. General: No acute distress, resting comfortable in bed. Seen in preop area prior to procedure. HEENT: Normocephalic, atraumatic. Pupils equal, round, reactive to light with no evidence of scleral icterus. Neck: Trachea midline. Chest: Good respiratory effort without audible wheezing or rales. Cardiovascular: Regular rate and rhythm. Sinus tachycardia. Abdomen: Soft and nontender. There is a palpable mass in the right lower quadrant. No evidence of hepatosplenomegaly. : Normal uncircumcised phallus, orthotopic meatus. Bilateral testicles palpated without asymmetry. Rectal: Digital rectal exam did show a slight firmness about the prostate. Prostate felt small with no masses present. There did appear to be a mass effect superior to the prostate itself and pushing downwards. Musculoskeletal: Moving all extremities. Neurologic: Gross motor and sensory intact. Skin: No skin lesions or rashes. LABS: White blood cell count 26.9, hemoglobin 7.8, hematocrit 25.7, platelets 611,000. Sodium 134, potassium 3.9, chloride 100, bicarb 20, BUN 11, creatinine 0.7, glucose 75, calcium 8.6. Urinalysis showed 50 protein, negative RBCs and white blood cells and no bacteria present. IMAGING: CT of pelvis images reviewed which showed a pelvic mass seemed to arise from small bowel causing mass effect on bilateral ureters with bilateral hydronephrosis. No evidence of any renal masses, nephrolithiasis, or renal cysts. ASSESSMENT AND PLAN: The patient is a 18-year-old who presented for evaluation of bilateral hydronephrosis. He be taken the operating room for resection by general surgery today. General surgery would like to have bilateral ureteral stents placed. The patient was seen in the preop area in preparation for his procedure and reviewed the risks of procedure including bleeding, infection, damage to surrounding structures or inability to perform procedure. Risks, benefits, alternatives were discussed at length. The patient elected to proceed. The patient was taken to the operating room with general surgery. He will perform their portion of procedure after a complete cystoscopy, bilateral retrograde pyelograms and bilateral stent placement. Consult note was dictated after procedure, but short progress note was placed in chart prior to procedure. cc: MD RACHEL Patricia
[2019-09-30] MEDS: PRILOSEC PO SCH (14:32)
--- NOTE | 2019-09-30 14:47 | Diag Imaging Result Doc PS360 ---
CT THORAX W/CONTRAST - 09/30/2019 INDICATION: R/o mets COMPARISON: CT from 09/29/2019 FINDINGS: There is peritoneal free air from the recent operation. There is a nasogastric tube in good position in the stomach. Heart size is normal. There is a trace pericardial effusion. There are trace bilateral pleural effusions. The lungs and airways are clear. No infiltrates or masses. Bones are intact and well mineralized. IMPRESSION: Trace pleural effusions and trace pericardial effusion. No suspicious findings in the chest. This exam was performed using automated exposure control, adjustment of mA or kV according to patient size, and/or use of iterative reconstruction technique Electronically signed by Martinez Baker 09/30/2019 2:44 PM
--- NOTE | 2019-09-30 18:32 | PROGRESS NOTE ---
DATE: 09/29/2019 SUBJECTIVE: He is doing okay. He does want some ice chips. Blood pressure is a little bit on the low side, but I saw him postop. He is a very thin gentleman. OBJECTIVE: Vital Signs: Blood pressure is 87/54, heart rate 82, respiratory rate 16, temperature was up to 101.4 degrees. Cardiovascular: Regular rate and rhythm. Pulmonary: Bilateral breath sounds clear to auscultation. GI: Soft, nontender, nondistended. Bowel sounds were positive. ASSESSMENT: This is a gentleman with a large small bowel mass which is most likely malignant. He underwent resection with a hemicolectomy and an end-to-end anastomosis and tumor debulking today with a questionable lymphoma and it was stuck to the pelvis. Dr. Guzmán also evaluated the patient because he had bilateral hydronephrosis. He had ureteral stents placed I think while he was in the OR. PROBLEM LIST: 1. Small bowel mass. Has been resected. We are waiting on pathology obviously. 2. Anemia, symptomatic. We will continue to follow. 3. Elevated liver enzymes. His CT does not show any issues there. 4. Obstructive uropathy. He is status post stents. We will continue to follow. cc: Louis Finnegan MD
--- NOTE | 2019-10-01 00:23 | ECHO REPORT ---
ORDER DATE: 09/29/2019 MEASUREMENTS: Septal thickness 1.1, left ventricular internal diameter in diastole 4.7, posterior wall thickness 1.1, left ventricular internal diameter in systole 3.2, aortic root 2.8, left atrium 2.6. SUMMARY: 1. Adequate quality study. 2. Aortic valve is trileaflet and opens normally on 2-dimensional images. The peak gradient across aortic valve is less than 5 mm 5 mmHg. Mitral, tricuspid and pulmonic valves are without evidence of structural abnormality with very mild mitral regurgitation, trace tricuspid regurgitation, and mild pulmonic insufficiency. The estimated systolic PA pressure by Doppler is 25 mmHg. Aortic root is normal in size. 3. Normal left ventricular dimensions suggested. The estimated left ejection fraction appears to be at least 55%. No regional wall motion abnormality is evident. Left atrium, right atrium, right ventricle are normal in size with normal right ventricular systolic function. 4. Moderate pericardial effusion is demonstrated, collective anterior to right ventricle with a small amount of pericardial fluid evident posteriorly. There are no echocardiographic markers of tamponade physiology. 5. Appearance of inferior vena cava suggests normal central venous pressure. CONCLUSIONS: 1. Very mild mitral regurgitation. 2. Estimated left ventricular ejection fraction at least 55%. 3. Moderate pericardial effusion. cc: MD Jarod Lofton MD
[2019-10-01] MEDS: ZOSYN 3.375 GM in NS 50 ML IV SCH ×5 (00:40→23:44)
[2019-10-01] MEDS: LR 1,000 ML IV SCH ×2 (00:41→17:45)
[2019-10-01 06:47] LABS: BASO# 0.11 X1000 (0.0-0.2); BASO% 0.7 % (0.0-0.8); EOS# 0.08 X1000 (0.0-0.7); EOS% 0.5 % (0.0-10.0); HEMATOCRIT 28.1 % (42.0-52.0); IMM GRAN# 0.19 X1000 (0.0-0.04); IMM GRAN% 1.1 % (0.0-0.5); LYMPH# 1.06 X1000 (1.2-3.4); LYMPH% 6.3 % (20.5-51.1); MCH 26.5 PG (27-31); MCV 82.9 FL (81-99); MONO% 7.8 % (1.7-9.3); MPV 9.2 FL (7.4-10.4); NEUT# 14.03 X1000 (1.4-6.5); NEUT% 83.6 % (42.2-75.2); PLT 371 X1000 (130-400); RBC 3.39 XMIL (4.7-6.1); RDW 16.5 % (11.5-14.5); WBC 16.77 X1000 (4.8-10.8)
--- NOTE | 2019-10-01 06:51 | GENERAL SURGERY PROGRESS NOTE ---
DATE: 10/01/2019 SUBJECTIVE: Patient seems to be doing okay. He feels a little bit better. OBJECTIVE: Vital Signs: Patient is currently afebrile. Vital signs stable. General: No acute distress. Cardiovascular: Regular rate and rhythm. Lungs: Grossly clear. Abdomen: Soft, appropriately tender. LABORATORY: Currently pending. ASSESSMENT/PLAN: 18-year-old gentleman status post exploratory laparotomy, right hemicolectomy and debulking of abdominal tumor. #1 postop state. At this time, we will await return of bowel function. We will continue to monitor him. Oncology is to see him. We will follow up the official pathology report. We will keep him on antibiotics for right now. cc: Juanito Drake MD
[2019-10-01 08:30] LABS: AGAP 9; ALB/GLOB RATIO 0.6; ALBUMIN 1.8 g/dL (3.5-5.0); ALKALINE PHOSPHATASE 68 U/L (32-122); BUN 12 mg/dL (8-22); CALCIUM 8.3 mg/dL (8.8-10.2); CHLORIDE 102 mmol/L (98-107); COSMO 273; CREATININE 0.7 mg/dL (0.7-1.2); ESTIMATED GFR > 60; GLUCOSE 152 mg/dL (70-104); GOT 14 U/L (10-34); PHOSPHORUS 5.7 mg/dL (2.7-4.5); POTASSIUM 4.5 mmol/L (3.5-5.1); SODIUM 135 mmol/L (136-145); TCO2 24 mmol/L (25-35); TOTAL BILIRUBIN 0.62 mg/dL (0.20-1.00); TOTAL PROTEIN 4.9 g/dL (6.3-8.3)
[2019-10-01 08:38] LABS: GPT 20 U/L (10-44)
[2019-10-01] MEDS: PRILOSEC PO SCH (09:05)
[2019-10-01 11:13] LABS: HEPATITIS PROFILE ACUTE SEE COMMENTS
--- NOTE | 2019-10-01 13:37 | Diag Imaging Result Doc PS360 ---
BONE SCAN, TOTAL BODY - 09/30/2019 INDICATION: R/O mets TECHNIQUE: 27.7 mCi of MDP was administered COMPARISON: None FINDINGS: There is normal localization pattern of the radiotracer. No abnormal skeletal or soft tissue uptake. IMPRESSION: Negative exam. Electronically signed by Martinez Baker 10/01/2019 1:35 PM
--- NOTE | 2019-10-01 15:17 | EKG Report ---
Test Performed on : 10/01/2019 2:34:48 PM Test Reason : pericardial effusion Blood Pressure : / mmHG Vent. Rate : 053 BPM Atrial Rate : 053 BPM P-R Int : 138 ms QRS Dur : 082 ms QT Int : 482 ms P-R-T Axes : 016 037 036 degrees QTc Int : 452 ms Sinus bradycardia. Minimal voltage criteria for LVH, may be normal variant Nonspecific T wave abnormality Abnormal ECG When compared with ECG of 29-SEP-2019 16:09, (Unconfirmed) Vent. rate has decreased BY 83 BPM T wave inversion now evident in Anterior leads Confirmed by Royce Chatterjee MD ([id number]) on 10/01/2019 3:42:43 PM
--- NOTE | 2019-10-01 17:00 | CARDIOLOGY CONSULTATION ---
DATE: 10/01/2019 REQUESTED BY: Oncology service. REASON FOR CONSULT: Pericardial effusion. HISTORY: Mr. Kenyon is a 18-year-old male, originally from [place], who presented to the hospital on the day of admission, September 29, 2019, complaining of abdominal pain. Initial evaluation revealed a large mass that appeared to arise from the wall of a loop of small bowel involving the lower abdomen. There was also a complicating bilateral hydronephrosis. The patient underwent preliminary intervention by Dr. Guzmán to preserve the ureters and then Dr. Drake performed a laparotomy on September 29, performing a right hemicolectomy with stapled [id number] functional end-to-end anastomosis, tumor debulking, and rigid proctoscopy. Subsequently, on the , they did a chest CT that shows trace pleural effusion and trace pericardial effusion. They had requested a 2D echocardiogram on September 28 for really uncertain reasons. However, that echocardiogram shows the presence of a small to moderate-sized pericardial effusion. There are no signs of pericardial tamponade. There is no evidence of any significant valvular abnormality or masses. The patient at this time is laying in bed. He has an NG tube. He is in significant discomfort following the surgery. He denies having any chest pain, palpitations, dyspnea, or syncope. There is no edema. PAST MEDICAL HISTORY: Really is negative. He does report having 2 prior episodes of profound constipation beginning in June lasting through July and then again prior to this admission, a few weeks ago. Those episodes were managed by cutting down on his food intake and also using some laxatives. He had noted weight loss. He said that his weight was closer to 140 pounds before. He may have lost about 30 pounds or so in the past few months. SURGICAL HISTORY: Negative. SOCIAL HISTORY: He is single. The patient had left [place] about 5 years ago with another friend. He entered the [facility] as a minor and he was kept in a [facility] facility in [place], [place], then transferred to [place], and from there he was eventually released after he turned 16 years of age. He has parents and 2 siblings in a town called [facility] in [place]. He has really no next of kin in the [place], only friends. Not a drinker. Not a smoker. Works in construction. FAMILY HISTORY: Noncontributory. MEDICATIONS: No scheduled medications. ALLERGIES: No allergies. PHYSICAL EXAMINATION: Vital signs: Blood pressure is 93/49, temperature 97.6 degrees, pulse 60, respirations 15. General: Young individual, emaciated, pale, in no distress. Very uncomfortable. HEENT: Unremarkable. No jugular venous distention. Chest: Shows diminished breath sounds at the bases. Heart: Sounds are regular, rhythmic. I do not hear any gallop or murmur. Abdomen: Diffusely tender. He has some dressing there. Bowel sounds markedly diminished. Extremities: Showed good pulses. No peripheral edema. Neurologic: Follows commands. Moves 4 extremities. BLOOD WORK: On admission, his white cell count was 21,230, hemoglobin 5 g, hematocrit was 17.4%. Reticulocyte count was 5%. His MCV was 81.7, RDW was 17.1, and platelet count was 378,000. PT and PTT were normal. Sodium 131, potassium 4.4, BUN 10, creatinine 0.7 on admission. AST was 135, ALT 66, alkaline phosphatase 189 units. Lactate dehydrogenase was 228 units, slightly elevated. Lipase was normal. Beta 2 microglobulin is 1.9. We have ordered a C-reactive protein which is 204.51 mg/L. Albumin is 1.8 g percent. TSH is normal. His iron saturation is only 4%. His most recent chest x-ray was done on admission and it showed no evidence of pathology. His 12 lead EKG on admission 09/29/2019 shows sinus rhythm with sinus tachycardia. Today, September 30 ,his EKG shows sinus rhythm with a nonspecific T-wave abnormality. His potassium level was normal today. IMPRESSION: 1. Patient who has an incidental finding of a pericardial effusion. It is really not causing any hemodynamic compromise. 2. Mass in the abdomen, status post laparotomy and debulking of the mass. Preliminary report according to Dr. Drake indicated possible lymphoma. Final report is pending. 3. Severe iron deficiency anemia, iron saturation 4%. 4. Malnutrition. RECOMMENDATION: At this time, we do not need to do anything about the pericardial effusion other than to follow this patient clinically. If at some point he becomes significantly hypotensive in the next few days, we may consider repeat echo, limited. In the meantime, we will really need to try to optimize his anemia, his nutritional status, and oncologists will decide on specific therapy for suspected malignancy, specifically lymphoma. Prognosis unfortunately appears to be poor because of his markedly compromised nutritional status and in addition, his social situation is really quite unfortunate. I will be glad to follow him as needed. cc: Ayden Narvaez MD MTDD
--- NOTE | 2019-10-01 18:21 | PROGRESS NOTE ---
DATE: 10/01/2019 SUBJECTIVE: Patient has no major complaints. OBJECTIVE: Vital Signs: Blood pressure 93/49, heart rate 60, respiratory rate 15, temperature 97.6 degrees, 100% on 2 L. Cardiovascular: Regular rate and rhythm. Pulmonary: Bilateral breath sounds clear to auscultation. GI: Soft, nontender, nondistended. Bowel sounds are positive. LABORATORY DATA: White count 16, hemoglobin and hematocrit 9 and 28, platelets 371,000. Basic was normal. His C-reactive protein is 204, not sure why we checked that. His beta 2 microglobulin is normal. CA is normal. PROBLEM LIST: Large small bowel mass with concern over possible lymphoma. We will continue to monitor closely. He is awaiting final pathology. He is status post exploratory laparotomy, postop day #2 and we are going to continue to follow. I am going to put him on some fluids because he is not eating and he has a nasogastric tube down, probably should be on some enoxaparin too. I do not know. But in any case, we will continue to follow. Other than that he really does not have many medical problems, he did have symptomatic anemia, but I do not know if that was from bleeding. We will start enoxaparin tomorrow as his hemoglobin and hematocrit I think is stable, in fact it has come up. He has had a total of four units of blood, but since there is a cancer risk, I think he is a high risk for DVT, even though I know he is young, but we will continue to follow. DISPOSITION: Pending his clinical status. cc: Louis Finnegan MD
[2019-10-01] MEDS: D5 LR 1,000 ML IV SCH (18:28)
[2019-10-01] MEDS: PROTONIX IV SCH (18:29)
--- NOTE | 2019-10-02 05:42 | GENERAL SURGERY PROGRESS NOTE ---
DATE: 10/02/2019 SUBJECTIVE: Patient moved to the floor from the [facility]. He seems to be doing okay. OBJECTIVE: Vital Signs: Patient is currently afebrile. Vital signs stable. General: No acute distress. Cardiovascular: Regular rate and rhythm. Lungs: Grossly clear. Abdomen: Soft. Hypoactive bowel sounds. Incision is healing well. ASSESSMENT AND PLAN: A 18-year-old gentleman currently postoperative day #2 from exploratory laparotomy, right hemicolectomy, and bulking of tumor. Postoperative state. At this time, I agree that it is probably safe to start him on Lovenox or heparin. He is on some IV fluids. He still does not have a definitive return of bowel function. We will keep his NG tube in place. We will remove his Willams catheter. We will follow up the pathology. We will continue current treatment. cc: Juanito Drake MD
[2019-10-02] MEDS: D5 LR 1,000 ML IV SCH ×2 (05:55→15:02)
[2019-10-02] MEDS: ZOSYN 3.375 GM in NS 50 ML IV SCH ×4 (05:56→23:39)
[2019-10-02] MEDS: LOVENOX SUBQ SCH (05:56)
[2019-10-02 06:54] LABS: BASO# 0.01 X1000 (0.0-0.2); BASO% 0.1 % (0.0-0.8); EOS# 0.05 X1000 (0.0-0.7); EOS% 0.3 % (0.0-10.0); HEMATOCRIT 26.2 % (42.0-52.0); HEMOGLOBIN 8.2 g/dL (14.0-18.0); IMM GRAN# 0.14 X1000 (0.0-0.04); IMM GRAN% 0.8 % (0.0-0.5); LYMPH# 1.59 X1000 (1.2-3.4); LYMPH% 8.6 % (20.5-51.1); MCH 25.9 PG (27-31); MCHC 31.3 g/dL (33-37); MCV 82.9 FL (81-99); MONO# 0.89 X1000 (0.11-0.59); MONO% 4.8 % (1.7-9.3); MPV 9.1 FL (7.4-10.4); NEUT# 15.77 X1000 (1.4-6.5); NEUT% 85.4 % (42.2-75.2); PLT 467 X1000 (130-400); RBC 3.16 XMIL (4.7-6.1); RDW 16.5 % (11.5-14.5); WBC 18.45 X1000 (4.8-10.8)
[2019-10-02 07:17] LABS: AGAP 9; ALB/GLOB RATIO 0.8; ALBUMIN 2.4 g/dL (3.5-5.0); ALKALINE PHOSPHATASE 67 U/L (32-122); BUN 9 mg/dL (8-22); CALCIUM 8.2 mg/dL (8.8-10.2); CHLORIDE 99 mmol/L (98-107); COSMO 274; CREATININE 0.6 mg/dL (0.7-1.2); ESTIMATED GFR > 60; GLUCOSE 120 mg/dL (70-104); GOT 14 U/L (10-34); GPT 17 U/L (10-44); PHOSPHORUS 2.8 mg/dL (2.7-4.5); POTASSIUM 3.7 mmol/L (3.5-5.1); SODIUM 137 mmol/L (136-145); TCO2 29 mmol/L (25-35); TOTAL BILIRUBIN 0.48 mg/dL (0.20-1.00); TOTAL PROTEIN 5.3 g/dL (6.3-8.3)
[2019-10-02 07:50] LABS: LYMPHS 8 % (21-51); MONO 5 % (1-9); SEGS 87 % (42-75)
[2019-10-02] MEDS ORDERED: FERRLECIT 125 MG in NS 100 ML IV ONE (13:32)
--- NOTE | 2019-10-02 14:06 | PROGRESS NOTE ---
DATE: 10/02/2019 INTERVAL HISTORY: Pain well controlled. The patient said he has the urge to have a bowel movement but has not done so yet. Complains of some discomfort associated with the NG tube, but no other new complaints. No acute events overnight. REVIEW OF SYSTEMS: A 12-point review of systems negative except as per interval history. LABS: WBC 18.4, hemoglobin 8.2, hematocrit 29.2, platelets 467,000. Sodium 137, potassium 3.7, BUN 9, creatinine 0.6, glucose 120. VITAL SIGNS: T-max 98.2 degrees, pulse 70, respirations 14, blood pressure 100/50, and O2 saturation 99% on room air. PHYSICAL EXAMINATION: General: On physical exam, in no acute distress. Vital Signs: As above. HEENT: Normocephalic, atraumatic. NG tube in place. Cardiovascular: Regular rate and rhythm. No murmurs noted. Pulmonary: Clear to auscultation bilaterally. No wheezing, rales, or rhonchi. Abdomen: Soft, nontender, nondistended. Bowel sounds positive. Extremities: Peripheral pulses intact. No clubbing or cyanosis. Neurologic: Cranial nerves grossly intact. No focal deficits identified. Psychiatric: Normal mood and affect. Awake, alert, oriented x3. ASSESSMENT AND PLAN: 1. Bowel mass, lymphoma. The patient with debulking of bowel mass on 09/30/[address] Drake. 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 We will go ahead and check an HIV screen based on Burkitt's lymphoma association. Oncology, Dr. Mireles is following. Anticipate discharge once he has return of bowel function and is tolerating oral intake, although no definite timeline for that yet. 2. Iron deficiency anemia. We will go ahead and place the patient on intravenous iron since he is not yet tolerating oral intake. 3. Pericardial effusion. He has been evaluated by cardiology and it does not appear to be hemodynamically significant at this time. If his hemodynamic status changes, then we may need to repeat evaluation with echocardiogram. 4. Hydronephrosis, status post stent placement surgery. Hopefully, it has been resolved with placement of stents and debulking of his mass. Kidney function is stable.
[2019-10-02] MEDS: PROTONIX IV SCH (18:46)
[2019-10-02] MEDS: SODIUM CHLORIDE 0.9% INJ SCH (18:47)
[2019-10-03] MEDS: D5 LR 1,000 ML IV SCH ×2 (03:14→14:27)
[2019-10-03] MEDS: ZOSYN 3.375 GM in NS 50 ML IV SCH ×3 (05:02→17:33)
[2019-10-03] MEDS: LOVENOX SUBQ SCH (05:03)
--- NOTE | 2019-10-03 05:59 | GENERAL SURGERY PROGRESS NOTE ---
DATE: 10/03/2019 SUBJECTIVE: Patient doing well. He is not sick to his stomach. He has passed a little bit of gas. OBJECTIVE: Vital Signs: Patient is currently afebrile. His vital signs are stable. General: No acute distress. HEENT: NG tube in place with minimal output. Cardiovascular: Regular rate and rhythm. Lungs: Grossly clear. Abdomen: Soft, appropriately tender. Bowel sounds auscultated. Incision with dressing intact. LABORATORY: Reviewed from yesterday. White blood cell count was up slightly. Pathology prelim is concerning for lymphoma but full pathology is pending. ASSESSMENT AND PLAN: A 18-year-old, currently postoperative day #3 exploratory laparotomy, right hemicolectomy, and debulking of tumor. Postoperative state. At this time, the patient is doing okay. We removed his NG tube and will start him on a clear liquid diet and see how he does. He has had slow return of bowel function. We will continue to monitor white blood cell count and hematocrit. cc: Juanito Drake MD MTDD
[2019-10-03 06:28] LABS: BASO# 0.01 X1000 (0.0-0.2); BASO% 0.1 % (0.0-0.8); EOS# 0.03 X1000 (0.0-0.7); EOS% 0.2 % (0.0-10.0); HEMATOCRIT 22.8 % (42.0-52.0); HEMOGLOBIN 7.1 g/dL (14.0-18.0); IMM GRAN# 0.09 X1000 (0.0-0.04); IMM GRAN% 0.6 % (0.0-0.5); LYMPH# 1.16 X1000 (1.2-3.4); MCH 26.4 PG (27-31); MCHC 31.1 g/dL (33-37); MCV 84.8 FL (81-99); MONO# 1.03 X1000 (0.11-0.59); MONO% 7.1 % (1.7-9.3); MPV 8.6 FL (7.4-10.4); NEUT# 12.14 X1000 (1.4-6.5); PLT 486 X1000 (130-400); RBC 2.69 XMIL (4.7-6.1); RDW 16.2 % (11.5-14.5); WBC 14.46 X1000 (4.8-10.8)
[2019-10-03 07:02] LABS: AGAP 9; ALB/GLOB RATIO 0.8; ALBUMIN 2.1 g/dL (3.5-5.0); ALKALINE PHOSPHATASE 86 U/L (32-122); BUN 5 mg/dL (8-22); CALCIUM 7.7 mg/dL (8.8-10.2); CHLORIDE 98 mmol/L (98-107); COSMO 269; CREATININE 0.6 mg/dL (0.7-1.2); ESTIMATED GFR > 60; GLUCOSE 91 mg/dL (70-104); GOT 13 U/L (10-34); GPT 12 U/L (10-44); PHOSPHORUS 3.5 mg/dL (2.7-4.5); POTASSIUM 3.6 mmol/L (3.5-5.1); SODIUM 136 mmol/L (136-145); TCO2 29 mmol/L (25-35); TOTAL BILIRUBIN 0.49 mg/dL (0.20-1.00); TOTAL PROTEIN 4.6 g/dL (6.3-8.3)
--- NOTE | 2019-10-03 07:07 | PROGRESS NOTE ---
DATE: 10/03/2019 SUBJECTIVE: No acute events overnight. The patient feels like he is doing better today. Blood pressures are improved. He denies any nausea or vomiting. He states he passed gas yesterday. He denies nausea or vomiting this morning. His catheter has been removed and he has been voiding without issue. He denies any pelvic pain or symptoms of bladder spasms. OBJECTIVE: Vital Signs: Temperature 99.2, heart rate 88, blood pressure 107/55, oxygen saturation 96% on room air. General: No acute distress. Resting comfortably in bed. Alert and oriented x3. Respiratory: Good respiratory effort without audible wheezing or rales. Abdomen: Soft, nontender, and midline incision covered with a dressing. Genitourinary: No suprapubic tenderness. No CVA tenderness. Labs: White blood cell count 14.5, hemoglobin 7.1, hematocrit 22.8, platelets 486,000. Creatinine yesterday was 0.6. 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 ASSESSMENT AND PLAN: Mr. Kenyon is a 18-year-old who presented in consult regarding bilateral hydronephrosis. He underwent cystoscopy and bilateral ureteral stent placement in preparation for surgery by Dr. Drake on 09/30/2019. Overall, the patient seems to be doing relatively well. He denies any bladder spasms or flank pain. I talked with him. I recommended keeping indwelling stents in at this time. Would manage at a later date, depending on further treatment options regarding his lymphoma are needed with possible chemotherapy. We will continue to monitor from a urologic standpoint. Please call with questions or concerns. cc: Chris Guzmán MD [facility]
[2019-10-03 09:15] LABS: HIV ANTIBODY SCREEN SEE COMMENTS
[2019-10-03 09:42] LABS: HEMOGLOBIN ELECTROPHORESIS SEE COMMENTS
--- NOTE | 2019-10-03 12:56 | PROGRESS NOTE ---
DATE: 10/03/2019 INTERVAL HISTORY: Patient's NG tube removed this morning. No nausea or vomiting since then. Still no good bowel movement. Urine output remains adequate. No new complaints. No acute events overnight. He denies any clear symptoms of GI bleed. REVIEW OF SYSTEMS: Twelve point review of systems negative except as per interval history. LABS: WBC 14.4, hemoglobin 7.1, hematocrit 22.8, platelets 46,000. Sodium 136, potassium 3.6, BUN 5, creatinine 0.6, glucose 91. LFTs unremarkable. Hepatitis panel nonreactive. HIV screen negative. VITAL SIGNS: T-max 99.2 degrees, pulse 89, respirations 16, blood pressure 100/52, O2 saturation 100% on room air. PHYSICAL EXAMINATION: General: No acute distress. Vitals: As above. HEENT: Normocephalic, atraumatic. NG tube removed. Cardiovascular: Regular rate and rhythm. No murmurs noted. Pulmonary: Clear to auscultation bilaterally. No wheezing, rales, or rhonchi. Abdomen: Soft. Essentially nontender, nondistended. Midline incision bandaged. Bandage clean, dry, intact. Bowel sounds still significantly decreased but present. Extremities: Peripheral pulses intact. No clubbing or cyanosis. Neurologic: Cranial nerves grossly intact. No focal deficits identified. Psychiatric: Normal mood and affect. Awake, alert, and oriented x3. ASSESSMENT AND PLAN: 1. 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 Patient with debulking of bowel mass on 09/30/[address] Drake. Complete excision was not possible because it was so adherent to numerous structures. 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 Human immunodeficiency virus was checked because of association with Burkitt's, but was negative. Oncology, Dr. Mireles, following. Nasogastric tube out this morning since starting on clears, which he is tolerating so far. We will see how he does with diet over the next day or two. 2. Iron deficiency anemia. The patient has received intravenous iron. Blood counts down a little bit this morning, although no clear signs or symptoms of bleeding. We will recheck blood counts this afternoon and see if he may need transfusion. 3. Pericardial effusion. This has been evaluated by cardiology and felt to be not currently significant, but if hemodynamic status changes, may need to be re-evaluated. 4. Hydronephrosis. The patient is status post stent placement during recent surgery. Kidney function remains stable. This was thought to be caused by the mass, which has been debulked and may not be an issue anymore. Urology recommending leaving the stents in for now, given inability to completely resect the mass.
[2019-10-03 13:44] LABS: HEMATOCRIT 22.9 % (42.0-52.0)
[2019-10-03] MEDS: SODIUM CHLORIDE 0.9% INJ SCH (17:34)
[2019-10-03] MEDS: PROTONIX IV SCH (17:34)
[2019-10-04] MEDS: ZOSYN 3.375 GM in NS 50 ML IV SCH ×3 (00:44→11:16)
[2019-10-04] MEDS: D5 LR 1,000 ML IV SCH ×2 (00:44→12:27)
[2019-10-04] MEDS: TYLENOL LIQUID PO PRN ×3 (01:35→20:49)
[2019-10-04 05:09] LABS: BASO# 0.03 X1000 (0.0-0.2); BASO% 0.2 % (0.0-0.8); EOS# 0.06 X1000 (0.0-0.7); EOS% 0.4 % (0.0-10.0); HEMATOCRIT 23.9 % (42.0-52.0); HEMOGLOBIN 7.2 g/dL (14.0-18.0); IMM GRAN# 0.08 X1000 (0.0-0.04); IMM GRAN% 0.5 % (0.0-0.5); LYMPH# 1.34 X1000 (1.2-3.4); LYMPH% 8.3 % (20.5-51.1); MCH 25.6 PG (27-31); MCHC 30.1 g/dL (33-37); MCV 85.1 FL (81-99); MONO% 9.3 % (1.7-9.3); MPV 8.2 FL (7.4-10.4); NEUT# 13.09 X1000 (1.4-6.5); NEUT% 81.3 % (42.2-75.2); PLT 487 X1000 (130-400); RBC 2.81 XMIL (4.7-6.1); RDW 16.2 % (11.5-14.5)
[2019-10-04] MEDS: LOVENOX SUBQ SCH (05:22)
[2019-10-04 05:31] LABS: ESTIMATED GFR > 60
[2019-10-04 05:36] LABS: AGAP 7; ALB/GLOB RATIO 0.5; ALBUMIN 1.6 g/dL (3.5-5.0); ALKALINE PHOSPHATASE 106 U/L (32-122); BUN 5 mg/dL (8-22); CALCIUM 7.9 mg/dL (8.8-10.2); CHLORIDE 97 mmol/L (98-107); COSMO 262; CREATININE 0.6 mg/dL (0.7-1.2); GLUCOSE 98 mg/dL (70-104); GOT 11 U/L (10-34); GPT 9 U/L (10-44); PHOSPHORUS 3.5 mg/dL (2.7-4.5); POTASSIUM 3.5 mmol/L (3.5-5.1); SODIUM 132 mmol/L (136-145); TCO2 28 mmol/L (25-35); TOTAL BILIRUBIN 0.55 mg/dL (0.20-1.00); TOTAL PROTEIN 4.6 g/dL (6.3-8.3)
--- NOTE | 2019-10-04 05:53 | GENERAL SURGERY PROGRESS NOTE ---
DATE: 10/04/2019 SUBJECTIVE: Patient seems to be doing okay. He voices no complaints and says he is still passing gas and not sick to his stomach. OBJECTIVE: Vital Signs: Patient's current temperature 99 degrees, T max 100, pulse currently 109, blood pressure 110/56. General: No acute distress. Alert, interactive. Cardiovascular: Some mild tachycardia. Lungs: Grossly clear. No increased labored breathing. Abdomen: Soft, nondistended. Some hypoactive bowel sounds. No peritoneal signs. Seems appropriate tenderness. Extremities: Moves all extremities. No swelling. LABORATORY: Reviewed from this morning, white blood cell count 16, hematocrit 23, platelet count 487,000. His left shift is actually improving. CMP is pending. ASSESSMENT/PLAN: A 18-year-old gentleman, currently postoperative day #3 from exploratory laparotomy, right hemicolectomy and debulking of tumor. 1. Postoperative state. At this time, he looks okay. We will keep him on his clear liquid diet until he has more definitive return of bowel function. 2. Fever. At this point, it is low-grade with small tachycardia and leukocytosis. He does not have worrisome clinical exam at the moment, some of this fever and tachycardia could be from the breakdown of the tumor that was left in the abdomen. If this persists or gets higher, may need to consider chest x-ray and CT scan in the near future. He is on Zosyn currently, so we will need to monitor. 3. Possible Burkitt's lymphoma. At this time, final pathology is still pending flow cytometry. We will follow up with the results. 4. Pericardial effusion. Cardiology is following but it does not sound like it is symptomatic. cc: Juanito Drake MD
--- NOTE | 2019-10-04 08:30 | HEMO/ONC CONSULTATION ---
DATE: 09/30/2019 ADMITTING PHYSICIAN: Dr. Maradiaga. REQUESTING PHYSICIAN: Dr. Maradiaga. We appreciate this consult. CHIEF COMPLAINT: Small bowel mass. HISTORY OF PRESENT ILLNESS: Mr. Kenyon is a pleasant 18-year-old male with no significant past medical history. The patient presented to [facility] Emergency Department with complaints of sudden cramping in the right lower quadrant, which became worse with any movement. The patient denied any change in bowel habits. He denied any bright red blood per rectum or melena. The patient stated upon admission that he had lost some weight as he noticed his clothes were fitting more loosely. He was unable to quantify amount of weight loss. The patient denied fevers, chills, night sweats. We are consulted secondary to small bowel mass that was observed on CT scan. CT of the abdomen and pelvis revealed a very large mass arising from the wall of a loop of small bowel, involving the lower abdomen and pelvis causing at least a partial small bowel obstruction and obstructing bilateral ureters, questionably related to small bowel lymphoma versus gastrointestinal stromal tumor, which would be very unlikely. PAST MEDICAL HISTORY: None. PAST SURGICAL HISTORY: None. FAMILY HISTORY: Negative for any hematologic or oncologic disease. SOCIAL HISTORY: The patient does not use tobacco, alcohol or illicit drugs. MEDICATIONS ON ADMISSION: None. ALLERGIES: The patient has no known drug allergies. REVIEW OF SYSTEMS: A 14 point review of systems was obtained and is negative, except for mentioned in HPI. PHYSICAL EXAMINATION: General: Mr. Kenyon is a 18-year-old, thin male, lying supine in bed in no immediate distress. Vital Signs: Temperature is 97.8 degrees, blood pressure 96/52, heart rate 68, respirations 18, O2 saturation 100% on room air. HEENT: Normocephalic, atraumatic. Mucous membranes are pale and moist. Sclerae is anicteric. Extraocular movements intact. Neck: Supple. Respirations: Nonlabored. CV: S1, S2 is observed without murmur, rub or gallop. Abdomen: Nondistended. Midline incision intact without draining. Extremities: Without clubbing, cyanosis, or edema. Dermatologic: No rashes, bruises or lesions. Neurologic: The patient is awake, alert, and oriented x3. He has no focal deficit. LABORATORY DATA: Hemoglobin 7.8, hematocrit 25.7, white blood cell count 26.96, platelets 611. Sodium 134, potassium 3.9, chloride 100, CO2 is 20. BUN 11, creatinine 0.7 and glucose is 75. Calcium is 8.6, bilirubin 1.36. Alkaline phosphatase 161, AST 40, ALT is 45. ASSESSMENT AND PLAN: 1. Small bowel mass. The patient is undergoing exploratory laparotomy today. Small bowel mass questionably related to small bowel lymphoma versus gastrointestinal stromal tumor. We will check a CT of the chest at this time, as well as a bone scan to rule out any metastases. Treatment plan to follow pathology. 2. Anemia. The patient is scheduled for transfusion of packed red blood cells today. We will continue to monitor complete blood count and transfuse packed red blood cells if hemoglobin is less than 8.0 or for active bleeding. 3. Elevated liver function tests, questionably related to liver metastases. We will continue to monitor. 4. Obstructive uropathy. Urology is currently following with plans for stent placement. 5. We will follow along with you and make further recommendations pending outcomes. The above reflects the history, exam, assessment and plan of Dr. Mireles. Dictated by MIAH Kc for Topher Mireles MD cc: MIAH Kc MD
[2019-10-04] MEDS ORDERED: NS 1,000 ML IV ONE (12:46)
--- NOTE | 2019-10-04 13:14 | Diag Imaging Result Doc PS360 ---
CHEST-1 VIEW - 10/04/2019 INDICATION: fever/dyspnea COMPARISON: None FINDINGS: Lung volumes are severely low. There is nonspecific left basilar atelectasis or infiltrate. IMPRESSION: Nonspecific findings. Electronically signed by Martinez Baker 10/04/2019 1:12 PM
--- NOTE | 2019-10-04 13:14 | EKG Report ---
Test Performed on : 10/04/2019 1:01:17 PM Test Reason : tachycardia Blood Pressure : / mmHG Vent. Rate : 117 BPM Atrial Rate : 117 BPM P-R Int : 134 ms QRS Dur : 076 ms QT Int : 306 ms P-R-T Axes : 047 039 041 degrees QTc Int : 426 ms Sinus tachycardia. Otherwise normal ECG When compared with ECG of 01-OCT-2019 14:34, Vent. rate has increased BY [address] no longer elevated in Lateral leads Nonspecific T wave abnormality has replaced inverted T waves in Anterior leads Confirmed by Laith BRENNAN, Ovi Rubalcava ([id number]) on 10/08/2019 9:37:17 AM
[2019-10-04] MEDS: ZYVOX 600 MG/D5W 600 MG/300 ML IVPB IV SCH (15:48)
[2019-10-04 17:24] LABS: URINE SOURCE CLEAN CATCH
[2019-10-04 17:28] LABS: BILIRUBIN URINE NEGATIVE (NEGATIVE); BLOOD URINE MODERATE (NEGATIVE); COLOR YELLOW; GLUCOSE URINE NEGATIVE (NEGATIVE); KETONE URINE NEGATIVE (NEGATIVE); LEUKOCYTES URINE TRACE (NEGATIVE); NITRITE URINE NEGATIVE (NEGATIVE); PH URINE 6.5; PROTEIN URINE 50 mg/dL (NEGATIVE); SP GRAVITY URINE 1.014; TURBIDITY URINE CLEAR (CLEAR); UROBILINOGEN URINE NORMAL (NORMAL)
[2019-10-04 17:29] LABS: UR EPITHELIAL CELLS <10 /HPF (<10); URINE BACTERIA NEGATIVE /HPF; URINE RBC TNTC /HPF (<10); URINE WBC <10 /HPF (<10)
[2019-10-04 17:40] LABS: URINE CASTS NONE SEEN; URINE CRYSTALS NONE SEEN; URINE YEAST NONE SEEN
[2019-10-04] MEDS: MAXIPIME 2 GM/NS 2 GM/100 ML IVPB IV SCH (18:25)
[2019-10-04] MEDS: SODIUM CHLORIDE 0.9% INJ SCH (18:32)
[2019-10-04] MEDS: PROTONIX IV SCH (18:33)
--- NOTE | 2019-10-04 19:07 | PROGRESS NOTE ---
DATE: 10/04/2019 SUBJECTIVE: The patient is resting comfortably. He complains of mild abdominal discomfort. He was noted to be febrile this morning, with a temperature of 100.7 degrees, and he was tachycardic as well. OBJECTIVE: Vital signs: T-max 100.7 degrees, blood pressure 109/60, heart rate 102, respirations 16, O2 saturation 97% on room air.General: This is a young male, lying in bed in no acute distress. Heart: S1, S2 normal. Tachycardic. Lungs: Equal air entry bilaterally. No wheezing. No rales. Diminished breath sounds at the bases. Abdomen: Positive bowel sounds. Soft, nontender, nondistended. Extremities: No edema, no cyanosis. Neurologic: The patient is alert and oriented x3. LABORATORY DATA: White blood cell count 16, hemoglobin 7.2, hematocrit 23, platelets 487,000. Sodium 132, potassium 3.5, chloride 97, CO2 is 28, BUN 5, creatinine 0.6, glucose 98, albumin 1.6. DIAGNOSTIC DATA: Chest x-ray shows left basilar atelectasis or possible infiltrate. ASSESSMENT AND PLAN: 1. Possible left basilar pneumonia. Blood cultures have been obtained. We will adjust the patient's antibiotics. We will also check a procalcitonin. 2. Status post exploratory laparotomy with right hemicolectomy and tumor debulking secondary to suspected lymphoma. Management as per the general surgeon. 3. Status post cystoscopy with bilateral retrograde pyelogram and bilateral ureteral stent placement, secondary to bilateral hydronephrosis as a result of a pelvic mass. Continue to monitor closely. 4. Severe protein-calorie malnutrition. The patient has been started on a clear liquid diet. He will likely require additional nutritional support. We will consult the dietitian. 5. Anemia. Continue to monitor closely. We will defer to Oncology regarding transfusion. 6. Deep vein thrombosis prophylaxis. Continue on Lovenox. cc: Nyasia Goodwin MD
[2019-10-04] MEDS: NS 1,000 ML IV SCH (20:51)
[2019-10-05] MEDS: LOVENOX SUBQ SCH (06:33)
[2019-10-05] MEDS: ZYVOX 600 MG/D5W 600 MG/300 ML IVPB IV SCH (06:38)
[2019-10-05 06:40] LABS: BASO# 0.03 X1000 (0.0-0.2); BASO% 0.1 % (0.0-0.8); EOS# 0.01 X1000 (0.0-0.7); HEMATOCRIT 22.1 % (42.0-52.0); HEMOGLOBIN 6.6 g/dL (14.0-18.0); IMM GRAN# 0.22 X1000 (0.0-0.04); IMM GRAN% 0.6 % (0.0-0.5); LYMPH# 1.05 X1000 (1.2-3.4); MCH 25.5 PG (27-31); MCHC 29.9 g/dL (33-37); MCV 85.3 FL (81-99); MONO% 3.7 % (1.7-9.3); MPV 8.7 FL (7.4-10.4); NEUT# 32.22 X1000 (1.4-6.5); NEUT% 92.6 % (42.2-75.2); PLT 525 X1000 (130-400); RBC 2.59 XMIL (4.7-6.1); RDW 16.1 % (11.5-14.5); WBC 34.83 X1000 (4.8-10.8)
[2019-10-05] MEDS: MAXIPIME 2 GM/NS 2 GM/100 ML IVPB IV SCH (06:41)
[2019-10-05] MEDS ORDERED: VANCOMYCIN IV PER PHARMACY MISC SCH (07:00)
[2019-10-05 07:12] LABS: ALLEN TEST YES; BE 3.7 mmoll (-3.0-3.0); BLOOD TYPE ARTERIAL; HCO3-(ACT) 27.8 mmoll (20.0-26.0); METHB 0.9 % (0.0-1.5); O2(CT) 9.4 mL/dL (15.0-23.0); O2HB 92.9 % (95.0-99.0); PCO2(98.6) 38 mmHg (35-45); PO2(98.6) 67 mmHg (60-100); SAMPLE BLOOD; SAO2 95.1 % (95.0-100.0); THB 7.1 g/dL (11.5-17.4); pH(98.6) 7.47 (7.35-7.45)
[2019-10-05 07:14] LABS: AGAP 10; ALB/GLOB RATIO 0.8; ALKALINE PHOSPHATASE 131 U/L (32-122); BUN 5 mg/dL (8-22); CALCIUM 7.8 mg/dL (8.8-10.2); CHLORIDE 97 mmol/L (98-107); COSMO 262; CREATININE 0.5 mg/dL (0.7-1.2); ESTIMATED GFR > 60; GLUCOSE 75 mg/dL (70-104); GOT 11 U/L (10-34); GPT 9 U/L (10-44); PHOSPHORUS 2.6 mg/dL (2.7-4.5); SODIUM 133 mmol/L (136-145); TCO2 26 mmol/L (25-35); TOTAL BILIRUBIN 0.59 mg/dL (0.20-1.00); TOTAL PROTEIN 4.6 g/dL (6.3-8.3)
[2019-10-05 07:15] LABS: MODALITY ROOM AIR
[2019-10-05] MEDS: MERREM 1 GM in NS 50 ML IV SCH ×3 (08:10→23:00)
[2019-10-05] MEDS: NS 1,000 ML IV SCH ×3 (09:00→21:17)
[2019-10-05] MEDS ORDERED: VANCOMYCIN 1,750 MG in NS 250 ML IV ONE (09:00)
--- NOTE | 2019-10-05 10:07 | GENERAL SURGERY PROGRESS NOTE ---
DATE: 10/05/2019 SUBJECTIVE: Temperature is 100.4 degrees, heart rate 142, respiratory rate 20, blood pressure 95/51. He is awake and alert, not particularly complaining. His abdomen is mildly dilated. His wound looks fine. He had 3317 in, 800 out. White count is up to 34,000, hemoglobin 6.6, hematocrit 22. On blood gases, pH 7.47, pCO2 38, PO2 67. I think it would be seay to get a CT of his abdomen and pelvis. He is being moved to the unit per the hospitalist. I will transfuse him a unit of packed cells. cc: Jamison Fleming MD
[2019-10-05] MEDS: TYLENOL LIQUID PO PRN ×2 (10:09→15:24)
--- NOTE | 2019-10-05 13:20 | Diag Imaging Result Doc PS360 ---
CT THORAX W/CONTRAST - 10/05/2019 INDICATION: pneumonia COMPARISON: 10/04/2019, 09/30/2019 FINDINGS: There is a trace right and small left pleural effusion. There is some mild bibasilar dependent atelectasis. Otherwise, no infiltrates. Heart size is top normal. Trace pericardial effusion. Bones are intact and well mineralized. IMPRESSION: Trace right and small left pleural effusion. No evidence of pneumonia. This exam was performed using automated exposure control, adjustment of mA or kV according to patient size, and/or use of iterative reconstruction technique Electronically signed by Martinez Baker 10/05/2019 1:18 PM
--- NOTE | 2019-10-05 13:27 | Diag Imaging Result Doc PS360 ---
CT ABD/PELVIS W/PO AND IV CON - 10/05/2019 INDICATION: post op fever, tachycardia, leukocytosis COMPARISON: 09/29/2019 FINDINGS: There is postoperative free air. There is also extensive free fluid. There are several moderately distended loops of small bowel measuring up to 3.7 cm. Distal bowel is collapsed. Urinary bladder is normal. There are bilateral nephroureteral stents in good position. Abdominal organs are grossly normal. There are chronic bilateral L5 pars defects. No acute bony lesions. IMPRESSION: 1. Small bowel dilation compatible with postoperative ileus or obstruction. 2. Free fluid. Severe body wall edema. Postoperative free air. This exam was performed using automated exposure control, adjustment of mA or kV according to patient size, and/or use of iterative reconstruction technique Electronically signed by Martinez Baker 10/05/2019 1:25 PM
[2019-10-05] MEDS: PROTONIX IV SCH (17:16)
--- NOTE | 2019-10-05 19:46 | PROGRESS NOTE ---
DATE: 10/05/2019 SUBJECTIVE: The patient was noted to be febrile all night and even again this morning. The patient states that he feels okay. He just complains of some abdominal fullness. OBJECTIVE: T-max 101.8 degrees, heart rate 110 respirations 18, blood pressure 99/60, O2 saturation 99% on room air. Intake 3.3 L, output 800.General: This is a young male lying in bed in no acute distress. Heart: S1, S2 normal. Tachycardic. Lungs: Equal air entry bilaterally. No wheezing. No rales. Abdomen: Positive bowel sounds. Soft. Diffuse tenderness. Extremities: 1+ edema bilaterally. Neurologic: The patient is alert and oriented x3. LABS: White blood cell count 34, hemoglobin 6.6, hematocrit 22 platelets 525,000. Sodium 133, potassium 4, chloride 97, CO2 26, BUN 5, creatinine 0.5, glucose 75, calcium 7.8, phosphorus 2.6, AST 11, ALT 9, alkaline phosphatase 131. IMAGING PROCEDURE: CT of the chest. No evidence of pneumonia. CT of the abdomen and pelvis reveals small bowel dilation compatible with ileus or obstruction. Free fluid. Postoperative free air. ASSESSMENT AND PLAN: 1. Sepsis. The source of the patient's infection is unknown. The CT of the chest, abdomen and pelvis does not reveal an obvious source. The patient's antibiotics have been adjusted. We will continue with IV fluids. We will monitor the patient closely in an ICU setting. 2. Status post exploratory laparotomy with right hemicolectomy and tumor debulking secondary to this small bowel tumor. Management as per the general surgeon. Await pathology. Oncology is following. 3. Status post cystoscopy with bilateral retrograde pyelogram and bilateral ureteral stent placement secondary to bilateral hydronephrosis. Continue to monitor closely. 4. Postoperative ileus. Management as per the general surgeon. 5. Severe protein calorie malnutrition. Continue on the clear liquid diet. 6. Anemia. The patient will receive 2 units of packed red blood cells today. 7. Gastrointestinal prophylaxis. Continue on Protonix. 8. Deep vein thrombosis prophylaxis. Continue on Lovenox. cc: Nyasia Goodwin MD MTDD
[2019-10-05] MEDS: VANCOMYCIN 1,300 MG in NS 250 ML IV SCH (21:17)
[2019-10-06] MEDS: LOVENOX SUBQ SCH (05:22)
[2019-10-06] MEDS: NS 1,000 ML IV SCH ×3 (05:22→20:48)
[2019-10-06] MEDS: MERREM 1 GM in NS 50 ML IV SCH ×4 (05:23→23:00)
[2019-10-06 06:48] LABS: BASO# 0.01 X1000 (0.0-0.2); EOS# 0.01 X1000 (0.0-0.7); HEMOGLOBIN 8.3 g/dL (14.0-18.0); IMM GRAN# 0.12 X1000 (0.0-0.04); IMM GRAN% 0.5 % (0.0-0.5); LYMPH# 0.87 X1000 (1.2-3.4); LYMPH% 3.8 % (20.5-51.1); MCH 26.6 PG (27-31); MCHC 31.9 g/dL (33-37); MCV 83.3 FL (81-99); MONO% 5.6 % (1.7-9.3); MPV 8.6 FL (7.4-10.4); NEUT# 20.73 X1000 (1.4-6.5); NEUT% 90.1 % (42.2-75.2); PLT 373 X1000 (130-400); RBC 3.12 XMIL (4.7-6.1); RDW 16.1 % (11.5-14.5); WBC 23.04 X1000 (4.8-10.8)
[2019-10-06 07:03] LABS: LYMPHS 2 % (21-51); SEGS 90 % (42-75)
[2019-10-06 07:27] LABS: AGAP 9; ALB/GLOB RATIO 0.7; ALKALINE PHOSPHATASE 160 U/L (32-122); BUN 8 mg/dL (8-22); CALCIUM 8.5 mg/dL (8.8-10.2); CHLORIDE 97 mmol/L (98-107); COSMO 262; CREATININE 0.4 mg/dL (0.7-1.2); ESTIMATED GFR > 60; GLUCOSE 91 mg/dL (70-104); GOT 10 U/L (10-34); GPT 7 U/L (10-44); PHOSPHORUS 2.6 mg/dL (2.7-4.5); POTASSIUM 3.7 mmol/L (3.5-5.1); SODIUM 132 mmol/L (136-145); TCO2 26 mmol/L (25-35); TOTAL PROTEIN 4.8 g/dL (6.3-8.3)
[2019-10-06] MEDS: VANCOMYCIN 1,300 MG in NS 250 ML IV SCH (09:33)
--- NOTE | 2019-10-06 10:20 | GENERAL SURGERY PROGRESS NOTE ---
DATE: 10/06/2019 SUBJECTIVE: This morning he appears to feel better. His temperature is 99.3 degrees, heart rate 87, blood pressure is 97/56, 2370 in and 1950 out. He had drank 50% of his clear liquid diet. His bowels have moved. White count is down to 23,000, hemoglobin is 8.3, hematocrit 26. He did receive a unit of blood yesterday. PLAN: To advance him to full liquids today. CT findings are noted. Dr. Drake will be back tomorrow to re-evaluate the CT scan results. cc: Jamison Fleming MD
[2019-10-06 12:26] LABS: LYMPHS 4 % (21-51); MONO 4 % (1-9); SEGS 92 % (42-75)
--- NOTE | 2019-10-06 13:10 | PROGRESS NOTE ---
DATE: 10/06/2019 SUBJECTIVE: The patient is resting comfortably in bed. No acute events noted overnight. The patient is afebrile. OBJECTIVE: Vital Signs: Temperature is 99.3 degrees, blood pressure is 97/56, heart rate is 87, respirations 16, O2 saturation is 100% on room air. General: This is a young male lying in bed in no acute distress. Heart: S1, S2 normal. Regular rate and rhythm. Lungs: Clear to auscultation bilaterally. Abdomen: Positive bowel sounds. Soft. Extremities: Trace pedal edema. Neurologic: The patient is alert and oriented x3. LABORATORY DATA: White blood cell count is 23, hemoglobin is 8.3, hematocrit is 26, platelets 373,000. Sodium is 132, potassium is 3.7, chloride is 97, CO2 is 26, BUN is 8, creatinine is 0.4, glucose is 91. ASSESSMENT AND PLAN: 1. Sepsis. The patient does not have an obvious source for infection; however, his laboratory studies are improved today and his heart rate is better. We will continue with broad-spectrum antibiotics and follow up on the culture results. 2. Status post exploratory laparotomy with right hemicolectomy and tumor debulking secondary to a small bowel tumor. Management as per the general surgeon. The pathology report is pending. Oncology is following. 3. Status post cystoscopy with bilateral retrograde pyelogram and bilateral ureteral stent placement secondary to bilateral hydronephrosis. Continue to monitor closely. 4. Severe protein calorie malnutrition. The patient is currently on a clear liquid diet. 5. Anemia. Improved. The patient received 2 units of packed red blood cells yesterday. 6. Gastrointestinal prophylaxis. Continue on Protonix. 7. Deep vein thrombosis prophylaxis. Continue on Lovenox. cc: Nyasia Goodwin MD
[2019-10-06] MEDS: PROTONIX IV SCH (18:50)
[2019-10-06] MEDS: VANCOMYCIN 1,700 MG in NS 250 ML IV SCH (21:00)
[2019-10-06] MEDS: DILAUDID IV PRN (23:47)
[2019-10-07] MEDS: NS 1,000 ML IV SCH (03:28)
[2019-10-07] MEDS: DILAUDID IV PRN ×5 (03:49→22:05)
[2019-10-07] MEDS: MERREM 1 GM in NS 50 ML IV SCH ×2 (06:09→15:14)
[2019-10-07] MEDS: LOVENOX SUBQ SCH (06:10)
[2019-10-07 06:12] LABS: BASO# 0.01 X1000 (0.0-0.2); EOS# 0.09 X1000 (0.0-0.7); EOS% 0.4 % (0.0-10.0); HEMATOCRIT 24.9 % (42.0-52.0); HEMOGLOBIN 7.8 g/dL (14.0-18.0); LYMPH# 0.94 X1000 (1.2-3.4); LYMPH% 4.3 % (20.5-51.1); MCH 26.4 PG (27-31); MCHC 31.3 g/dL (33-37); MCV 84.4 FL (81-99); MONO# 1.45 X1000 (0.11-0.59); MONO% 6.6 % (1.7-9.3); MPV 8.8 FL (7.4-10.4); NEUT# 19.33 X1000 (1.4-6.5); NEUT% 88.7 % (42.2-75.2); PLT 374 X1000 (130-400); RBC 2.95 XMIL (4.7-6.1); WBC 21.82 X1000 (4.8-10.8)
--- NOTE | 2019-10-07 06:21 | GENERAL SURGERY PROGRESS NOTE ---
DATE: 10/07/2019 SUBJECTIVE: Patient seems to be doing okay. Reviewed notes from the weekend. He did have a CT scan that showed fluid down in his pelvis which I am not necessarily surprised about in the area where we debulked most of his tumor. He seems to be doing okay. He is tolerating his diet. He is having bowel movements. OBJECTIVE: Vital Signs: Patient is currently afebrile. Vital signs have been stable. General: No acute distress. Cardiovascular: Regular rate and rhythm. Lungs: Grossly clear. Abdomen: Soft. Appropriately tender. Incision is healing well. No signs of drainage. No erythema. LABORATORY: Reviewed from yesterday. White blood cell count is trending down to 23, hematocrit 26, and platelet count 373,000. Remainder of labs reviewed. ASSESSMENT AND PLAN: A 18-year-old gentleman currently postoperative day #6 from exploratory laparotomy, right hemicolectomy, and debulking of tumor. 1. Postoperative state. At this time, patient seems to be doing okay. He has had some return of bowel function. We will put him on a GI soft diet. 2. Fever and leukocytosis. At this time, his fever seems to have improved but his leukocytosis is also improving. He does have a fluid collection down in his pelvis, which I am not necessarily surprised about. It is probably tumor breaking down and/or fluid collection seroma/hematoma. At this point, as long as his white blood cell count trends down, we will continue to monitor it. If his white blood cell count trends up again, we will consider getting drainage of the area by CT guidance. Otherwise, continue to monitor him. cc: Juanito Drake MD
[2019-10-07 06:34] LABS: AGAP 11; ALB/GLOB RATIO 0.6; ALBUMIN 1.7 g/dL (3.5-5.0); ALKALINE PHOSPHATASE 97 U/L (32-122); BUN 11 mg/dL (8-22); CALCIUM 7.8 mg/dL (8.8-10.2); CHLORIDE 101 mmol/L (98-107); COSMO 271; CREATININE 0.5 mg/dL (0.7-1.2); ESTIMATED GFR > 60; GLUCOSE 95 mg/dL (70-104); GOT 10 U/L (10-34); GPT 7 U/L (10-44); POTASSIUM 3.5 mmol/L (3.5-5.1); SODIUM 136 mmol/L (136-145); TCO2 24 mmol/L (25-35); TOTAL BILIRUBIN 0.43 mg/dL (0.20-1.00); TOTAL PROTEIN 4.7 g/dL (6.3-8.3)
[2019-10-07] MEDS: VANCOMYCIN 1,700 MG in NS 250 ML IV SCH ×2 (09:59→22:05)
--- NOTE | 2019-10-07 14:20 | PROGRESS NOTE ---
DATE: 10/07/2019 SUBJECTIVE: The patient is resting comfortably in bed. He is having bowel movements and he is tolerating his diet. He is asking when he can go home. OBJECTIVE: Vital Signs: Temperature 98.4 degrees, blood pressure 98/53, heart rate 62, respirations 16, O2 saturation is 100% on room air. General: This is a young male lying in bed in no acute distress. Heart: S1, S2 normal. Regular rate and rhythm. Lungs: Clear to auscultation bilaterally. No wheezing. No rales. No rhonchi. Abdomen: Positive bowel sounds. Soft. Mild tenderness on palpation. Extremities: Trace pedal edema. Neurologic: The patient is alert and oriented x3. LABS: White blood cell count 21, hemoglobin 7.8, hematocrit 24, platelets 374,000. Sodium 136, potassium 3.5, chloride 101, CO2 24, BUN 11, creatinine 0.5, glucose 95, albumin 1.7. ASSESSMENT AND PLAN: 1. Sepsis. The patient had a low-grade temp yesterday. However, his white count is coming down. The CT of the abdomen and pelvis done over the weekend showed free fluid in the abdomen. We will continue with antibiotics. The blood cultures remain negative so far. Further management as per the General Surgeon. 2. Status post exploratory laparotomy with right hemicolectomy and tumor debulking secondary to lymphoma. The pathology is showing lymphoma. We will await further recommendations from the oncologist. 3. Status post cystoscopy with bilateral retrograde pyelogram and bilateral ureteral stent placement secondary to bilateral hydronephrosis. Stable. 4. Severe protein calorie malnutrition. The patient has been started on a GI soft diet. Continue to monitor closely. Ensure has been added with each meal. 5. Anemia. The hemoglobin and hematocrit are slowly trending downward. Continue to monitor closely. The patient received 2 units of packed red blood cells on Monday. 6. Gastrointestinal prophylaxis. Continue on Protonix. 7. Deep vein thrombosis prophylaxis. Continue on Lovenox. cc: Nyasia Goodwin MD [facility]
[2019-10-07] MEDS: PROTONIX IV SCH ×2 (15:13→18:48)
[2019-10-07] MEDS: SODIUM CHLORIDE 0.9% INJ SCH (15:14)
[2019-10-08] MEDS: MERREM 1 GM in NS 50 ML IV SCH ×4 (00:11→23:27)
[2019-10-08] MEDS: DILAUDID IV PRN ×6 (01:33→20:52)
--- NOTE | 2019-10-08 05:49 | GENERAL SURGERY PROGRESS NOTE ---
DATE: 10/08/2019 SUBJECTIVE: The patient says he is doing okay. He has had a little bit of abdominal pain, but he seems to be doing okay. OBJECTIVE: Vital Signs: The patient is currently afebrile. Temperature max was 100.3, but currently 98.7. General: No acute distress, resting. Cardiovascular: Regular rate and rhythm. Lungs: Grossly clear. Abdomen: Soft, appropriate tenderness. Bowel sounds auscultated. Incision seems to be healing well. LABORATORY: Laboratory reviewed from yesterday. Current labs pending. ASSESSMENT AND PLAN: A 18-year-old status post debulking of tumor, exploratory laparotomy, and right hemicolectomy. 1. Postoperative state: At this time his bowels have returned to function. He seems to be doing okay from a return of bowel function standpoint. 2. Leukocytosis and fever: At this time, he is still have a low-grade fever. His leukocytosis is slightly improving. I would recommend continued antibiotics. I suspect this is all coming from the inside where his tumor was debulked. 3. Anemia: I suspect he still bleeding a little bit from where the tumor was. This is accounting for the drop in his hematocrit. I would recommend continuing to monitor it. The tissue itself is friable. cc: Juanito Drake MD
[2019-10-08 06:28] LABS: BASO# 0.04 X1000 (0.0-0.2); BASO% 0.2 % (0.0-0.8); EOS% 0.6 % (0.0-10.0); HEMOGLOBIN 7.2 g/dL (14.0-18.0); IMM GRAN# 0.09 X1000 (0.0-0.04); IMM GRAN% 0.5 % (0.0-0.5); LYMPH# 1.09 X1000 (1.2-3.4); LYMPH% 6.2 % (20.5-51.1); MCH 25.6 PG (27-31); MCV 85.4 FL (81-99); MONO# 1.33 X1000 (0.11-0.59); MONO% 7.6 % (1.7-9.3); MPV 8.7 FL (7.4-10.4); NEUT# 14.91 X1000 (1.4-6.5); NEUT% 84.9 % (42.2-75.2); PLT 462 X1000 (130-400); RBC 2.81 XMIL (4.7-6.1); WBC 17.56 X1000 (4.8-10.8)
[2019-10-08] MEDS: LOVENOX SUBQ SCH (06:31)
[2019-10-08 06:36] LABS: AGAP 10; ALB/GLOB RATIO 0.7; ALKALINE PHOSPHATASE 106 U/L (32-122); BUN 9 mg/dL (8-22); CALCIUM 7.8 mg/dL (8.8-10.2); CHLORIDE 99 mmol/L (98-107); COSMO 264; CREATININE 0.6 mg/dL (0.7-1.2); ESTIMATED GFR > 60; GLUCOSE 87 mg/dL (70-104); GOT 15 U/L (10-34); GPT 9 U/L (10-44); POTASSIUM 3.3 mmol/L (3.5-5.1); SODIUM 133 mmol/L (136-145); TCO2 24 mmol/L (25-35); TOTAL BILIRUBIN 0.51 mg/dL (0.20-1.00); TOTAL PROTEIN 4.9 g/dL (6.3-8.3)
[2019-10-08 06:46] LABS: MAGNESIUM 1.7 mg/dL (1.5-2.7); PHOSPHORUS 2.8 mg/dL (2.7-4.5)
--- NOTE | 2019-10-08 08:31 | Diag Imaging Result Doc PS360 ---
EXAM: FLAT/UPRIGHT ABD/1 VIEW CHEST INDICATION: fluid collection in abdomen/dyspnea TECHNIQUE: 3 views COMPARISON: Chest radiograph dated 10/04/2019 FINDINGS: Bilateral ureteral stents are in place. There are midline skin yara related to recent laparotomy. There are moderately distended loops of small bowel throughout the abdomen with air-fluid levels most consistent with postsurgical ileus. There is a small amount of extraluminal gas underlying the right hemidiaphragm that is assumed to be postsurgical. There has been development of an opacity at the medial left lung base projecting over the left heart border indicating atelectasis and/or infiltrate. There is evidence of a small left effusion. The right lung appears clear. Cardiac silhouette and central vasculature are stable. IMPRESSION: 1.Several moderately distended loops of small bowel most consistent with postsurgical ileus. 2.Trace extraluminal free gas underlying the right hemidiaphragm that is assumed to be postsurgical. 3.Small left pleural effusion with adjacent left basilar atelectasis and/or infiltrate. Electronically signed by Aramis Leal 10/08/2019 8:29 AM
[2019-10-08] MEDS: VANCOMYCIN 1,700 MG in NS 250 ML IV SCH (10:13)
[2019-10-08] MEDS: KLOR-CON PO SCH ×2 (15:13→17:32)
[2019-10-08] MEDS: TYLENOL LIQUID PO PRN ×2 (16:00→23:27)
[2019-10-08] MEDS ORDERED: LASIX IV ONE (17:04)
--- NOTE | 2019-10-08 17:08 | SEPSIS: TISSUE PERFUSION ASSMT ---
Sepsis: Tissue Perfusion Assmt - Physical Exam Assessment Date: 10/08/19 Time Assessment Initialized: 16:00 Vital Signs: Last Vital Signs Temp 101.7 F H 10/08/19 15:55 Pulse 100 H 10/08/19 15:55 Resp 16 10/08/19 15:55 BP 104/53 10/08/19 15:55 Pulse Ox 100 10/08/19 15:55 Height 5 ft 5 in Weight 52.299 kg Lung Sounds: lungs clear Heart Sounds: Regular Capillary Refill Time: Less Than 2 Seconds Peripheral Pulse Evaluation: radial (R): 2+, radial (L): 2+, dorsalis-pedis (R): 2+, dorsalis-pedis (L): 2+, posterior tibialis (R): 2+, posterior tibialis (L): 2+ Skin Exam: pink - Alternative Fluid Bolus Bolus Option: Alternative Fluid Resuscitation Bolus for morbidly obese patients with a BMI >30, Refer to [place] Body Weight Chart for Reference. - Impression Impression: Tissue Perfusion Adequate - Plan Plan: See Orders (Patient is net 14 L positive since admission. Additional IV fluids not ordered.)
--- NOTE | 2019-10-08 17:30 | PROGRESS NOTE ---
DATE: 10/08/2019 INTERVAL HISTORY: No acute events overnight. SUBJECTIVE: Mr. Kenyon denies any acute events. He denies any chest pain, shortness of breath, or cough. He denies nausea, vomiting. He states he has had a bowel movement. He feels weak. We discussed about his fever. Discussed about keeping him inside the hospital. I answered all of his questions. VITAL SIGNS: Temperature of 101.7 degrees, pulse 100, respiratory rate 16, blood pressure 104/53. He is saturating 100% on room air. PHYSICAL EXAMINATION: General: He appears pale, though not in acute distress. HEENT: Oral cavity is moist. Lungs: Air entry bilaterally equal. No wheeze, rhonchi, crackles. Cardiovascular: S1, S2 normal. Not tachycardic. No murmur or gallop. Abdomen: Soft. Midline yara of laparotomy. Hypoactive bowel sounds. Extremities: He has bilateral lower extremity edema. Neurologic: He is alert and oriented x3. LABS: Suggestive of WBC 17,000, hemoglobin 7.2, platelet 462,000. He has a potassium of 3.3 and hypokalemia is currently being repleted. Normal kidney function. MICROBIOLOGY: No positive data. IMAGING: Abdominal x-ray performed today had several moderately distended loops of bowel, most consistent with postsurgical ileus. ASSESSMENT AND PLAN: 1. Recurrent sepsis, likely from intraabdominal source. CT scan of abdomen and pelvis had free fluid in the abdomen. Continue intravenous vancomycin, meropenem. General Surgical team on board. His culture data so far has been unremarkable. 2. Pelvic tumor leading to bilateral hydronephrosis and abdominal pain on presentation, status post exploratory laparotomy with right hemicolectomy and partial tumor debulking. Continue diet management as per Surgical team. He is status post bilateral ureteral stent by Urology as well. 3. Intra-abdominal lymphoma. Oncology team on board. Appreciate recommendation. He has a large tumor burden in his pelvis. 4. Severe protein calorie malnutrition and anemia, status post 5 units of packed red blood cell transfusion. I will keep him on iron and multivitamin tablet. 5. Others. Continue enoxaparin for DVT prophylaxis. Start omeprazole for stress ulcer prophylaxis. DISPOSITION: Continue to monitor the patient on the floor. Plan of care discussed with him. His questions have been answered. cc: Thai Ramos MD
[2019-10-09] MEDS: DILAUDID IV PRN ×7 (00:12→20:46)
[2019-10-09] MEDS: VANCOMYCIN 1,700 MG in NS 250 ML IV SCH (01:42)
--- NOTE | 2019-10-09 05:55 | GENERAL SURGERY PROGRESS NOTE ---
DATE: 10/09/2019 SUBJECTIVE: Patient says he is doing okay. He is passing gas. He is tolerating his diet. He is having bowel movements. He says he does have a little bit of pain. OBJECTIVE: Vital Signs: Patient's T max is 100.0. Remainder of vital signs appear stable. General: No acute distress resting. Cardiovascular: Some very mild tachycardia. Lungs: Grossly clear. Abdomen: Soft, nondistended, appropriately tender. Incision seems to be healing. Bowel sounds auscultated. LABORATORY: Reviewed from yesterday, white blood cell count is 17, which is down, hematocrit 24, platelet count 462,000. Albumin is low at 2. ASSESSMENT/PLAN: A 18-year-old gentleman status post debulking of tumor, exploratory laparotomy and right hemicolectomy. 1. Postoperative state. At this time, he seems to have return of bowel function. We will just need to continue to monitor him. 2. Leukocytosis and fever. At this time, seems to be improving. He is on antibiotics. If his leukocytosis goes up or if he continues to have persistent fever, may need to consider CT- guided drainage of the fluid in his pelvis. 3. Anemia. At this time, seems to have stabilized. 4. Protein malnutrition. At this time, he is getting Ensure and GI soft diet. We will continue to monitor him. cc: Juanito Drake MD
[2019-10-09] MEDS: PRILOSEC PO SCH (06:12)
[2019-10-09] MEDS: MERREM 1 GM in NS 50 ML IV SCH ×2 (06:12→14:09)
[2019-10-09] MEDS: LOVENOX SUBQ SCH (06:12)
[2019-10-09 06:42] LABS: BASO# 0.03 X1000 (0.0-0.2); BASO% 0.1 % (0.0-0.8); EOS# 0.01 X1000 (0.0-0.7); HEMATOCRIT 23.7 % (42.0-52.0); HEMOGLOBIN 7.1 g/dL (14.0-18.0); IMM GRAN# 0.12 X1000 (0.0-0.04); IMM GRAN% 0.6 % (0.0-0.5); LYMPH# 0.99 X1000 (1.2-3.4); LYMPH% 4.6 % (20.5-51.1); MCH 25.5 PG (27-31); MCV 85.3 FL (81-99); MONO# 1.76 X1000 (0.11-0.59); MONO% 8.2 % (1.7-9.3); NEUT# 18.59 X1000 (1.4-6.5); NEUT% 86.5 % (42.2-75.2); PLT 509 X1000 (130-400); RBC 2.78 XMIL (4.7-6.1); RDW 15.8 % (11.5-14.5)
[2019-10-09 07:10] LABS: BANDS 2 % (0-1); LYMPHS 6 % (21-51); SEGS 92 % (42-75)
[2019-10-09 07:26] LABS: AGAP 8; BUN 7 mg/dL (8-22); CALCIUM 7.7 mg/dL (8.8-10.2); CHLORIDE 97 mmol/L (98-107); COSMO 260; CREATININE 0.5 mg/dL (0.7-1.2); ESTIMATED GFR > 60; GLUCOSE 92 mg/dL (70-104); MAGNESIUM 1.8 mg/dL (1.5-2.7); SODIUM 131 mmol/L (136-145); TCO2 26 mmol/L (25-35)
[2019-10-09] MEDS: THERA M PLUS PO SCH (08:14)
[2019-10-09] MEDS: TYLENOL LIQUID PO PRN ×2 (08:14→20:46)
[2019-10-09] MEDS: MYCAMINE 100 MG in NS 100 ML IV SCH (11:44)
[2019-10-09] MEDS ORDERED: NS 500 ML IV SCH (12:00)
[2019-10-09] MEDS: VANCOMYCIN 2,000 MG in NS 500 ML IV SCH (14:38)
[2019-10-09] MEDS: LR 1,000 ML IV SCH (15:45)
--- NOTE | 2019-10-09 15:59 | Diag Imaging Result Doc PS360 ---
EXAM: CT ABD/PELVIS W/IV CONT ONLY INDICATION: Evaluate for intra-abdominal abscess. TECHNIQUE: This exam was performed using automated exposure control, adjustment of mA or kV according to patient size, and/or use of iterative reconstruction technique. COMPARISON: 10/05/2019 FINDINGS: There is still postsurgical free air underlying the right hemidiaphragm but it has decreased during the interval. The fluid seen in the pelvis and lower abdomen extending along the paracolic gutters on the previous study has increased in size and now appears more loculated. There is a mildly thickened rind at its periphery with enhancement. It contains multiple gas droplets. It is suspicious for developing abscess. Similar to the previous study, there are multiple moderately distended loops of bowel throughout the abdomen that probably represents postsurgical ileus. Bilateral ureteral stents remain in place. There is persistent bilateral hydronephrosis. There is mildly heterogeneous enhancement of the renal cortices bilaterally. This may simply be due to the hydronephrosis. However, this is a finding that is also commonly seen in pyelonephritis. Please correlate clinically. There is a very small right pleural effusion and a moderate to large size left pleural effusion with adjacent atelectasis. This is similar to the previous study. There is stable residual tumor in the pelvis. Otherwise, the abdomen and pelvis is essentially stable. IMPRESSION: 1.Interval increase in size of the large loculated collection of fluid in the pelvis and extending along the paracolic gutters with internal gas droplets suspicious for developing abscess. 2.Persistent distended loops of small bowel that probably represents postsurgical ileus. 3.Bilateral ureteral stents in place with persistent bilateral hydronephrosis. 4.Somewhat heterogeneous renal cortical enhancement bilaterally. This can be associated with pyelonephritis. Please correlate clinically. Electronically signed by Aramis Leal 10/09/2019 3:57 PM
--- NOTE | 2019-10-09 16:01 | PROGRESS NOTE ---
DATE: 10/09/2019 RECENT HISTORY: Patient continued to have episodes of fever overnight. SUBJECTIVE: Mr. Kenyon complains of lower abdominal pain. Denies any chest pain, shortness of breath, cough. He denies any nausea, vomiting. He states he is eating better and has been having bowel movements. He states he was able to ambulate in the room by himself. VITALS: Currently temperature 100.1 degrees, pulse 119, respiratory 18, blood pressure 127/58. He is saturating 99% on room air. PHYSICAL EXAMINATION: General: He appears pale, not in acute distress though. His oral cavity is moist. Lungs: Air entry bilaterally equal. No wheeze or rhonchi. He had mild crackles on left infrascapular region. Cardiovascular: S1, S2 normal. Tachycardic. No murmur, rub, or gallop. Abdomen: Soft. He has midline yara of laparotomy. He has active bowel sounds. Lower Extremities: He has bilateral lower extremity edema. LICENSED [employer]: He is alert and oriented x3 on neurological examination. He is able to raise both upper and lower extremities above ground level, though he does have weakness of lower extremities as compared to upper. He was able to bend both of his knees. INPUT/OUTPUT: Input and output suggests -300 mL yesterday. DATA: Labs suggestive of WBC 21,000, hemoglobin 7.1, platelet 509,000. His BUN is 7, creatinine 0.5, sodium 131, chloride 95, his magnesium is 1.8. Repeat blood cultures have been collected. No new imaging. ASSESSMENT AND PLAN: 1. Recurrent sepsis from intraabdominal source. CT scan was done on October 04. I had a detailed discussion about his care with the surgeon doctor and then later on with the radiologist, and after my discussion with the radiologist, we decided to get a CT scan of abdomen pelvis with IV contrast. Based on that, the Radiology Team would decide about paracentesis versus CT- guided drainage if he has any drainable collection. I will continue his intravenous vancomycin, intravenous meropenem. I will repeat blood cultures and start him on intravenous micafungin. Fungal blood cultures are awaited. I will also start him on intravenous lactated ringers. 2. Pelvic tumor leading to bilateral hydronephrosis and abdominal pain on presentation, status post exploratory laparotomy with right hemicolectomy and partial tumor debulking on 09/30/2019. Continue diet and physical activity. He is on enoxaparin for deep venous thrombosis prophylaxis. He also is status post bilateral ureteric stent by Urology Team. 3. 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 Oncology Team on board. He probably has significant tumor burden. 4. Severe protein-calorie malnutrition and anemia, status post 5 units of packed red blood cell transfusion. Continue iron and multivitamin tablets. Considering his ongoing sepsis further blood transfusion is currently on hold. 5. Continue omeprazole for stress ulcer prophylaxis. DISPOSITION: Continue to monitor patient on the telemetry unit. Plan of care discussed with the patient. He was allowed to ask questions. All of his questions have been answered. I discussed with the floor corporate secretary to update the contact information. The patient does not have any immediate relatives in the [place]. cc: Thai Ramos MD
[2019-10-10] MEDS: MERREM 1 GM in NS 50 ML IV SCH ×4 (00:09→23:36)
[2019-10-10] MEDS: DILAUDID IV PRN ×7 (00:09→21:50)
[2019-10-10] MEDS: VANCOMYCIN 2,000 MG in NS 500 ML IV SCH ×3 (02:54→16:23)
--- NOTE | 2019-10-10 05:50 | GENERAL SURGERY PROGRESS NOTE ---
DATE: 10/10/2019 SUBJECTIVE: The patient says he is doing okay. We looked at the CT scan yesterday, he still has a fluid collection down in his pelvis, likely the area where his tumor is necrosing. OBJECTIVE: Vital Signs: The patient is currently afebrile, but he has a temperature max of 101.1. His vital signs have been stable. General: No acute distress, resting. Cardiovascular: Some mild tachycardia. Lungs: Grossly clear. Abdomen: Soft, appropriately tender, some bowel sounds auscultated. Incision seems to be healing well. DIAGNOSTIC DATA: Laboratory reviewed from yesterday, with white blood count 21, hematocrit 23, platelet count 509,000. CT scan reviewed and noted above. ASSESSMENT AND PLAN: A 18-year-old gentleman, status post right hemicolectomy, debulking of tumor, exploratory laparotomy. Postoperative state: At this time agree with CT-guided drainage of the area. I am getting cultures of the area. Agree with continuing him on antibiotics. From a postoperative point of view he seems to be improving, we just need to monitor him. cc: Juanito Drake MD
[2019-10-10] MEDS: LOVENOX SUBQ SCH (06:42)
[2019-10-10] MEDS: PRILOSEC PO SCH (06:42)
[2019-10-10] MEDS: THERA M PLUS PO SCH (08:07)
[2019-10-10] MEDS: MYCAMINE 100 MG in NS 100 ML IV SCH ×2 (09:42→10:50)
[2019-10-10] MEDS: LR 1,000 ML IV SCH (14:42)
[2019-10-10] MEDS: TYLENOL LIQUID PO PRN ×2 (16:00→21:50)
--- NOTE | 2019-10-10 16:34 | Diag Imaging Result Doc PS360 ---
EXAM: CT GUIDE ABD DRAINAGE W/CATH INDICATION: abdominal abscess TECHNIQUE: COMPARISON: 10/09/2019 FINDINGS: Risks, benefits, and alternatives were discussed with the patient and informed consent was obtained. The patient was placed in a supine position and was prepped and draped in sterile fashion. Local anesthesia was achieved with 1% lidocaine solution. Using CT guidance, a 12-Yor[place] Pickell drainage catheter was inserted into the large lower abdominal/pelvic abscess at the right lower quadrant. Approximately 250 mL of purulent blood-tinged fluid was aspirated. A sample was sent for laboratory analysis. There were no known complications. IMPRESSION: Technically successful CT-guided abdominal abscess drainage and pigtail catheter placement. Electronically signed by Aramis Leal 10/10/2019 4:32 PM
--- NOTE | 2019-10-10 20:53 | PROGRESS NOTE ---
DATE: 10/10/2019 INTERVAL HISTORY: He underwent CT scan of the abdomen and pelvis yesterday which had detected multiloculated abscess inside his lower abdomen. CT scan-guided drainage was ordered by the surgical team and he underwent drainage with about 250 mL of purulent fluid removed. The drain was kept in place. He continued to have fever spike. SUBJECTIVE: Mr. Kenyon denies any complaints except abdominal pain. He states he is eating okay. OBJECTIVE: Vital signs: Temperature is 98.5 degrees, pulse 86, respiratory rate 20, blood pressure 89/47. He is saturating 96% on room air. On physical examination he has significant conjunctival pallor. Air entry bilaterally equal. No wheeze, rhonchi or crackles. S1, S2 normal, tachycardic. No murmur or gallop. Abdomen is soft. He has midline yara of laparotomy. Hypoactive bowel sounds. He has right lower quadrant drain which has serosanguineous fluid and drainage coming out. He has generalized tenderness, more pronounced in bilateral lower quadrants. He has bilateral lower extremity edema. He is alert and oriented x3. LABORATORY DATA: Labs suggestive of persistent leukocytosis, persistent normocytic anemia and thrombocytosis. He has hyponatremia and hypochloremia. His hypokalemia has resolved. Microbiology: Abscess culture is in the lab. ASSESSMENT AND PLAN: 1. Recurrent sepsis from intra-abdominal abscess, status post CT-guided drain. Followup culture obtained through the abscess fluid. Continue intravenous vancomycin, intravenous meropenem and intravenous micafungin. 2. Diffuse large B-cell lymphoma, likely Burkitt lymphoma on presentation, leading to abdominal pain, status post right hemicolectomy on 09/30/2019. Continue diet and multivitamin. He was encouraged to increase his oral intake as tolerated. 3. Diffuse large B-cell lymphoma leading to bilateral hydronephrosis and abdominal pain on presentation, status post exploratory laparotomy with right hemicolectomy and partial tumor debulking on 09/29, as well as bilateral ureteric stent by Urology team. 4. Severe protein-energy malnutrition and anemia, status post 5 units of packed red blood cell transfusion. Continue iron and multivitamin tablet. 5. Others: Continue omeprazole for stress ulcer prophylaxis. 6. Disposition: I will continue to monitor the patient on the medical floor. cc: Thai Ramos MD
[2019-10-11] MEDS: DILAUDID IV PRN ×7 (02:14→23:32)
[2019-10-11] MEDS: LR 1,000 ML IV SCH ×2 (02:14→11:48)
[2019-10-11] MEDS: VANCOMYCIN 2,000 MG in NS 500 ML IV SCH (04:14)
[2019-10-11] MEDS: LOVENOX SUBQ SCH (05:33)
[2019-10-11] MEDS: PRILOSEC PO SCH ×2 (05:33→07:01)
--- NOTE | 2019-10-11 06:01 | GENERAL SURGERY PROGRESS NOTE ---
DATE: 10/11/2019 SUBJECTIVE: Patient seems to be doing okay. He did have a significant amount of fluid drained from his abdomen over 250 out when they did the CT-guided drainage. It looked like infected hematoma. He is doing okay, but sore at the area. He is still having bowel movements. OBJECTIVE: Vital signs: Patient is currently afebrile. His T-max is 101.2 degrees at 3:47 yesterday. His vital signs have been stable. General: No acute distress resting. Cardiovascular: Regular rate and rhythm. Lungs: Grossly clear. Abdomen: Soft and appropriately tender. Tender around accordion drain. Accordion drain at the moment does not have a significant amount of drainage in it. MICROBIOLOGY: Shows gram-positive cocci. ASSESSMENT AND PLAN: A 18-year-old gentleman status post exploratory laparotomy for a B-cell lymphoma. Postoperative state. At this time, he seems to be having return of bowel function. We will continue on his current diet. He has had an abdominal hematoma drained. He is probably going to have continued issues with intra-abdominal processes secondary to the B-cell lymphoma being so diffuse and enlarged in his abdomen. I would agree with continuing to monitor him with the drain and antibiotics, and see how he does. cc: Juanito Drake MD
[2019-10-11 06:36] LABS: BASO# 0.05 X1000 (0.0-0.2); BASO% 0.2 % (0.0-0.8); EOS# 0.07 X1000 (0.0-0.7); EOS% 0.3 % (0.0-10.0); HEMATOCRIT 24.2 % (42.0-52.0); HEMOGLOBIN 7.4 g/dL (14.0-18.0); IMM GRAN# 0.12 X1000 (0.0-0.04); IMM GRAN% 0.5 % (0.0-0.5); LYMPH# 1.31 X1000 (1.2-3.4); LYMPH% 5.3 % (20.5-51.1); MCH 26.2 PG (27-31); MCHC 30.6 g/dL (33-37); MCV 85.8 FL (81-99); MONO# 2.37 X1000 (0.11-0.59); MONO% 9.6 % (1.7-9.3); NEUT# 20.85 X1000 (1.4-6.5); NEUT% 84.1 % (42.2-75.2); PLT 650 X1000 (130-400); RBC 2.82 XMIL (4.7-6.1); RDW 16.1 % (11.5-14.5); WBC 24.77 X1000 (4.8-10.8)
[2019-10-11 06:49] LABS: AGAP 12; BUN 7 mg/dL (8-22); CHLORIDE 93 mmol/L (98-107); COSMO 258; CREATININE 0.4 mg/dL (0.7-1.2); ESTIMATED GFR > 60; GLUCOSE 80 mg/dL (70-104); MAGNESIUM 1.9 mg/dL (1.5-2.7); POTASSIUM 4.2 mmol/L (3.5-5.1); SODIUM 130 mmol/L (136-145); TCO2 25 mmol/L (25-35)
[2019-10-11] MEDS: THERA M PLUS PO SCH (09:36)
[2019-10-11] MEDS: MERREM 1 GM in NS 50 ML IV SCH ×3 (09:46→23:32)
[2019-10-11] MEDS: MYCAMINE 100 MG in NS 100 ML IV SCH (10:51)
--- NOTE | 2019-10-11 13:21 | PROGRESS NOTE ---
DATE: 10/11/2019 INTERVAL HISTORY: No acute events overnight. SUBJECTIVE: He complains of some abdominal pain. He has been passing gas. He states he was not able to come out of bed today because of abdominal pain. He has not had fever since yesterday night. VITALS: Currently temperature 99.5 degrees, pulse 113, respiratory rate 16, blood pressure 117/60. He is saturating 100% on room air. PHYSICAL EXAMINATION: Marked conjunctival pallor. No cyanosis, clubbing, or icterus.Lungs: Air entry bilaterally equal. No wheeze, rhonchi, crackles. Cardiovascular: S1, S2 normal. Tachycardic. No murmur or gallop. Abdomen: Soft. There is generalized tenderness which is more prominent in the lower quadrants. He has midline laparotomy yara. He has right lower quadrant drain which has purulent drainage. Bowel sounds were difficult to be appreciated. Extremities: He has bilateral lower extremity edema. Neurologic: He is alert and oriented x3. [place]: [place] [address], hemoglobin 7.4, platelets 660,000. Sodium 130, chloride 93, BUN 7, creatinine 0.4. No microbiological positive data at the moment. Yesterday, CT-guided abdominal drain placement had 250 mL of purulent blood tinged fluid aspiration. ASSESSMENT AND PLAN: 1. Recurrent sepsis from intra-abdominal abscess status post CT-guided drain. Follow up final culture data. Continue intravenous vancomycin, meropenem and micafungin. I will discontinue micafungin based on culture results. 2. 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 Continue current diet as he is having good bowel movement. I will continue enoxaparin for deep venous thrombosis prophylaxis and intravenous fluids until he has 24 hours of fever free period. 3. Bilateral hydronephrosis due to bulky tumor pressing on ureters, status post bilateral nephrostomy tubes by Urology team. Currently, he is making urine without any hematuria or discomfort. 4. Severe protein energy malnutrition and anemia, status post 5 units of packed red blood cell transfusion. Continue iron, multivitamin tablets. 5. Others. Continue home omeprazole for stress ulcer prophylaxis. DISPOSITION: Continue monitor patient on medical floor as he has intra-abdominal drain. Plan of care discussed with him. His questions have been answered. cc: Thai Ramos MD
[2019-10-11] MEDS: VANCOMYCIN 1,300 MG in NS 250 ML IV SCH (18:56)
[2019-10-11] MEDS: TYLENOL LIQUID PO PRN (23:32)
[2019-10-12] MEDS: DILAUDID IV PRN ×8 (02:39→23:51)
[2019-10-12] MEDS: VANCOMYCIN 1,300 MG in NS 250 ML IV SCH ×5 (02:40→20:04)
[2019-10-12] MEDS: PRILOSEC PO SCH ×2 (05:17→06:58)
[2019-10-12] MEDS: LR 1,000 ML IV SCH (05:17)
[2019-10-12] MEDS: MERREM 1 GM in NS 50 ML IV SCH ×4 (05:17→23:51)
[2019-10-12] MEDS: LOVENOX SUBQ SCH (08:37)
[2019-10-12] MEDS: THERA M PLUS PO SCH (08:37)
--- NOTE | 2019-10-12 09:18 | PROGRESS NOTE ---
DATE: 10/12/2019 Mr. Kenyon is a 18-year-old slim, [place] male, status post open right hemicolectomy per Dr. Drake on 09/30/2019. This morning he is awake, appears to be comfortable. He does have some drainage from his lower midline wound. It appears to be serous. He has a drain in the right lower quadrant which is draining purulence. He is on IV Merrem. His white blood cell count on 10/10/2019 was 25. He has had no recent labs. He is eating a regular diet. His heart rate is 100, blood pressure 99/59, O2 saturation 100%. He is afebrile. PLAN: We will continue wound care, IV antibiotics, and maintain a radiologic placed drain to the right lower quadrant. We will continue a regular diet. cc: Lindsey Celeste MD
[2019-10-12] MEDS: MYCAMINE 100 MG in NS 100 ML IV SCH (13:28)
--- NOTE | 2019-10-12 15:39 | PROGRESS NOTE ---
DATE: 10/12/2019 INTERVAL HISTORY: He continued to have intermittent fever spike. Abscess fluid is growing gram- negative rods. SUBJECTIVE: Mr. Kenyon denies any chest pain, shortness of breath, or cough. He denies nausea, vomiting, or abdominal pain. He states he has been tolerating 70 percent to 80 percent of his diet. We discussed about his intra-abdominal infection and challenging course ahead. I answered all of his questions. REVIEW OF SYSTEM: Negative for burning in urination. Negative for diarrhea or constipation. PHYSICAL EXAMINATION: vital signs: Temperature of 99.2 degrees, pulse 70, respiratory rate 16, blood pressure 98/55, and he is saturating 100% on room air. heent: Marked conjunctival pallor. Lungs: Air entry bilaterally equal. No wheeze, rhonchi, or crackles. Cardiovascular: S1, S2 normal. No murmur, rub, or gallop. Abdomen: Soft. Midline laparotomy scars with yara on. Right below umbilicus I could see some serosanguineous fluid coming out. His right lower quadrant drain which has pus-like material coming out, about 50 mL since insertion. Neurologic: He is alert and oriented x3. LABORATORIES: WBC 24,000, hemoglobin 7.4, platelets 650,000. Sodium 130, chloride 93, BUN 7, creatinine 0.4. MICROBIOLOGY: Abscess culture is growing gram-negative rods. IMAGING: No new imaging. ASSESSMENT AND PLAN: 1. Recurrent sepsis from intra-abdominal abscess status post CT-guided drain. Abscess fluid is growing gram-negative mt. I will continue intravenous vancomycin, meropenem, and micafungin until I get the final culture and sensitivity. Appreciate surgical team's recommendation about sero-sanguinous discharge through yara from the wound. 2. 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 Continue regular diet. Enoxaparin for deep venous thrombosis prophylaxis. I will stop intravenous fluids now since his oral intake is adequate. 3. Bilateral hydronephrosis due to bulky tumor pressing on ureter status post bilateral nephrostomy by Urology team. Currently he is making urine without any difficulty. 4. Severe protein energy malnutrition and acute blood loss anemia status post 5 units of packed red blood cell transfusion. Continue iron multivitamin tablets. 5. Others. Continue omeprazole for stress ulcer prophylaxis. DISPOSITION: Monitor the patient inside the hospital. I discussed with him about his likely challenging medical course and prolonged hospitalization considering intra- abdominal wound infection. cc: MD RACHEL Sanchez
[2019-10-13] MEDS: DILAUDID IV PRN ×6 (03:20→21:41)
[2019-10-13] MEDS: VANCOMYCIN 1,300 MG in NS 250 ML IV SCH (03:52)
[2019-10-13 05:53] LABS: BASO# 0.04 X1000 (0.0-0.2); BASO% 0.2 % (0.0-0.8); EOS# 0.12 X1000 (0.0-0.7); EOS% 0.6 % (0.0-10.0); HEMATOCRIT 21.3 % (42.0-52.0); HEMOGLOBIN 6.4 g/dL (14.0-18.0); IMM GRAN# 0.11 X1000 (0.0-0.04); IMM GRAN% 0.6 % (0.0-0.5); LYMPH# 1.15 X1000 (1.2-3.4); LYMPH% 6.1 % (20.5-51.1); MCH 25.4 PG (27-31); MCV 84.5 FL (81-99); MONO# 2.56 X1000 (0.11-0.59); MONO% 13.7 % (1.7-9.3); MPV 9.1 FL (7.4-10.4); NEUT# 14.72 X1000 (1.4-6.5); NEUT% 78.8 % (42.2-75.2); PLT 639 X1000 (130-400); RBC 2.52 XMIL (4.7-6.1); RDW 15.8 % (11.5-14.5)
[2019-10-13 06:05] LABS: AGAP 11; BUN 7 mg/dL (8-22); CALCIUM 8.2 mg/dL (8.8-10.2); CHLORIDE 91 mmol/L (98-107); COSMO 259; CREATININE 0.4 mg/dL (0.7-1.2); ESTIMATED GFR > 60; GLUCOSE 95 mg/dL (70-104); MAGNESIUM 1.9 mg/dL (1.5-2.7); SODIUM 130 mmol/L (136-145); TCO2 28 mmol/L (25-35)
[2019-10-13] MEDS: PRILOSEC PO SCH (06:12)
[2019-10-13] MEDS: LOVENOX SUBQ SCH (06:12)
[2019-10-13] MEDS: MERREM 1 GM in NS 50 ML IV SCH (06:12)
[2019-10-13] MEDS: THERA M PLUS PO SCH (09:19)
[2019-10-13] MEDS: MYCAMINE 100 MG in NS 100 ML IV SCH (11:55)
[2019-10-13] MEDS ORDERED: NS 500 ML IV ONE (12:22)
[2019-10-13] MEDS ORDERED: TYLENOL LIQUID PO PRN (12:25)
--- NOTE | 2019-10-13 14:54 | PROGRESS NOTE ---
DATE: 10/13/2019 INTERVAL HISTORY: He has not had any fever episodes since yesterday. Mr. Kenyon had only a fever of 100.4 yesterday. He has not been tachycardic. He does have anemia with hemoglobin of 6.4, and culture from the abdominal abscess fluid is growing Escherichia coli. His drain is draining about 50 mL so far. SUBJECTIVE: Mr. Kenyon denies any chest pain, shortness of breath, or cough. He continues to complain of abdominal pain. He denies nausea or vomiting. He had a bowel movement. OBJECTIVE: Vital Signs: Temperature of 99.5 degrees, pulse 109, respiratory rate 17, blood pressure 106/57, he is saturating 100% room air. General: He appears cachectic. He has some marked conjunctival pallor. No cyanosis, clubbing, icterus. Lungs: Air entry equal bilaterally. No wheeze or crackles. Heart: S1, S2 normal. No murmur or gallop. Abdomen: Soft, nontender in upper quadrant. He has mild tenderness in both lower quadrants. He has right lower quadrant drain. He has midline laparotomy yara. There is oozing of fluid from the upper part of the yara where he has put some gauze. Extremities: He has bilateral lower extremity edema. Neurologic: He is alert and oriented x3. Input and output suggests -800 mL so far today. LABORATORY DATA: WBC of 18,000, hemoglobin 6.4, platelets 639,000. His BUN is 7, creatinine 0.4. Wound culture is growing Escherichia coli, which is sensitive to first-generation cephalosporin. ASSESSMENT AND PLAN: 1. Recurrent sepsis from intra-abdominal abscess, status post CT-guided drain. Abscess fluid grows Escherichia coli. Change antibiotics to intravenous cefazolin. Blood culture has not shown any growth. He also has discharge coming out from yara, and may need some staple removal to allow drainage of the fluid from the upper part of abdominal incision. 2. Anemia. This is likely a combination of acute blood loss anemia from surgery, chronic blood loss from intestinal tumor. I will give 1 unit of blood transfusion. Follow up with hemoglobin and hematocrit tomorrow. Continue multivitamin tablets with iron. 3. 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 Continue regular diet, enoxaparin for deep venous thrombosis prophylaxis. 4. Bilateral hydronephrosis, likely in the setting of bulky tumor pressing on ureter, status post bilateral stent by Urology team. Currently, he is making urine without any difficulty. 5. Severe protein energy malnutrition. Continue multivitamin tablets and Ensure. 6. Disposition. Continue to monitor the patient inside the hospital. Plan of care discussed with him. His questions have been answered. cc: Thai Ramos MD
[2019-10-13] MEDS: KEFZOL 2 GM/D5W 2 GM/50 ML IVPB IV SCH (15:25)
[2019-10-13] MEDS ORDERED: KEFZOL 1 GM/D5W 1 GM/50 ML IVPB IV SCH (16:00)
[2019-10-13] MEDS: OXY IR PO PRN (17:49)
[2019-10-14] MEDS: KEFZOL 2 GM/D5W 2 GM/50 ML IVPB IV SCH ×3 (00:03→15:23)
[2019-10-14] MEDS: OXY IR PO PRN (01:08)
[2019-10-14] MEDS: DILAUDID IV PRN ×4 (04:08→21:45)
--- NOTE | 2019-10-14 04:15 | PROGRESS NOTE ---
DATE: 10/13/2019 SUBJECTIVE: Mr. Kenyon continues to drain some purulent fluid from a right lower quadrant abdominal drain. He is also draining serous fluid from his lower midline incision. He is tolerating a diet. He is having regular bowel movements. OBJECTIVE: Vital signs: His T-max is 99, blood pressure is 99/47, O2 saturation is 100%. LABS: His white blood cell count has gone from 25 to 18 and hematocrit is 21%. Electrolytes are within normal limits. PLAN: We will continue wound care, right lower quadrant abdominal drain, and IV antibiotics per Dr. Drake. Dr. Drake returns tomorrow. cc: Lindsey Celeste MD
[2019-10-14] MEDS: LOVENOX SUBQ SCH (05:25)
[2019-10-14] MEDS: PRILOSEC PO SCH ×2 (05:25→06:03)
[2019-10-14 06:14] LABS: BASO# 0.06 X1000 (0.0-0.2); BASO% 0.3 % (0.0-0.8); EOS# 0.11 X1000 (0.0-0.7); EOS% 0.5 % (0.0-10.0); HEMATOCRIT 26.3 % (42.0-52.0); HEMOGLOBIN 8.3 g/dL (14.0-18.0); IMM GRAN# 0.14 X1000 (0.0-0.04); IMM GRAN% 0.7 % (0.0-0.5); LYMPH# 1.19 X1000 (1.2-3.4); LYMPH% 5.7 % (20.5-51.1); MCH 26.7 PG (27-31); MCHC 31.6 g/dL (33-37); MCV 84.6 FL (81-99); MONO# 3.02 X1000 (0.11-0.59); MONO% 14.5 % (1.7-9.3); MPV 8.7 FL (7.4-10.4); NEUT# 16.34 X1000 (1.4-6.5); NEUT% 78.3 % (42.2-75.2); PLT 679 X1000 (130-400); RBC 3.11 XMIL (4.7-6.1); RDW 15.4 % (11.5-14.5); WBC 20.86 X1000 (4.8-10.8)
[2019-10-14 06:32] LABS: ESTIMATED GFR > 60
--- NOTE | 2019-10-14 06:32 | GENERAL SURGERY PROGRESS NOTE ---
DATE: 10/14/2019 SUBJECTIVE: Patient seems to be doing okay. He is having some difficulty with pain medicine so we will alter some of his pain medicine. OBJECTIVE: Vital Signs: Patient is currently afebrile. His vital signs are stable. General: No acute distress. Cardiovascular: Regular rate and rhythm. Lungs: Grossly clear. Abdomen: Soft. Appropriately tender. Accordion drain in place with some purulence noted out. ASSESSMENT AND PLAN: A 18-year-old gentleman status post exploratory laparotomy, right hemicolectomy, and debulking of Burkitt cell lymphoma. Postoperative state at this time. He is having return of bowel function. The main thing is the remaining tumor burden in his abdomen that is causing this infection. I agree with current antibiotics, and we will keep him in a drain. His white blood cell count is trending down. He has not had as much fever so I think we are heading in the right direction. I suspect this is going to be a long-term issue as he gets treated for his B-cell lymphoma. cc: Juanito Drake MD
[2019-10-14 06:38] LABS: AGAP 12; BUN 7 mg/dL (8-22); CALCIUM 8.8 mg/dL (8.8-10.2); CHLORIDE 89 mmol/L (98-107); COSMO 255; CREATININE 0.4 mg/dL (0.7-1.2); GLUCOSE 96 mg/dL (70-104); MAGNESIUM 1.8 mg/dL (1.5-2.7); POTASSIUM 4.1 mmol/L (3.5-5.1); SODIUM 128 mmol/L (136-145); TCO2 27 mmol/L (25-35)
[2019-10-14] MEDS: THERA M PLUS PO SCH (08:04)
[2019-10-14] MEDS: OXYCODONE PO PRN (12:05)
--- NOTE | 2019-10-14 18:06 | PROGRESS NOTE ---
DATE: 10/14/2019 INTERVAL HISTORY: Mr. Kenyon had 1 time fever episode yesterday. SUBJECTIVE: He is currently feeling better. He states his abdominal pain has started getting better and he has not been requiring pain medications since the last few hours. PHYSICAL EXAMINATION: Vital signs: Temperature 98.9 degrees, pulse 94, respiratory rate 16, blood pressure 110/65. He is saturating 100% on room air. General: Mr. Kenyon is not in acute distress. HEENT: Oral cavity is moist. Lungs: Air entry bilaterally equal. No wheeze, rhonchi, or crackles. He does have marked conjunctival pallor without any cyanosis, clubbing or icterus. Heart: S1, S2 normal. No murmur or gallop. Abdomen: Soft, tenderness around the yara, but otherwise hypoactive bowel sounds. He has midline yara with dressing at the lower end of the incision. Yesterday it was oozing. Today, I could not see any oozing. He has right lower quadrant drain draining pus-like material. Extremities: He has bilateral lower extremity edema. Neurologic: He is alert and oriented x3. LABS: Suggestive of WBC 20,000, hemoglobin 8.3, platelet 679,000. Sodium is 128, chloride 89, BUN 7, creatinine 0.4. No new microbiological or imaging data. PLAN/ASSESSMENT: 1. Recurrent sepsis from postoperative intra-abdominal abscess, status post CT-guided drain. Abscess fluid grew Escherichia coli. Continue intravenous cefazolin. His discharge from the laparotomy incision has started coming down. 2. Anemia. This is a combination of acute blood loss anemia from surgery, chronic blood loss anemia from intestinal tumor. He received 1 unit PRBCs on October 12 with appropriate rise in hemoglobin. Continue multivitamin tablets with iron. 3. 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 Continue regular diet. Enoxaparin for deep venous thrombosis prophylaxis, and intravenous hydromorphone and [place] as needed for pain. Oncology team on board. 4. Bilateral hydronephrosis likely because of large pelvic mass, status post bilateral ureteral stent placement by Urology team. He is currently voiding without any difficulty. 5. Others: Continue multivitamins and Ensure for severe protein energy malnutrition. DISPOSITION: Continue to monitor patient inside the hospital as he still has drainage from the drainage tube. The patient does not have insurance. Once intra-abdominal infection resolves in the future, he would need chemotherapy for his lymphoma. I allowed him to ask questions. I also informed him that he should let his family back in [place] know about his cancer diagnosis. All of Mr. Kenyon's questions have been answered. cc: Thai Ramos MD
[2019-10-15] MEDS: KEFZOL 2 GM/D5W 2 GM/50 ML IVPB IV SCH ×2 (00:51→09:21)
[2019-10-15] MEDS: DILAUDID IV PRN ×5 (01:36→18:49)
[2019-10-15] MEDS: LOVENOX SUBQ SCH (05:28)
[2019-10-15] MEDS: PRILOSEC PO SCH ×2 (05:28→06:23)
--- NOTE | 2019-10-15 06:02 | GENERAL SURGERY PROGRESS NOTE ---
DATE: 10/15/2019 SUBJECTIVE: The patient is doing okay. OBJECTIVE: Vital Signs: The patient is currently afebrile, and he has been so over the last 24 hours. Vital signs are stable. General: No acute distress. Cardiovascular: Regular rate and rhythm. Lungs: Grossly clear. Abdomen: Soft, appropriately tender. drain in place with purulent drainage still draining. ASSESSMENT/PLAN: A 18-year-old status post right hemicolectomy, debulking of Burkitt cell lymphoma. Postoperative state: At this time postoperatively, he is having return of bowel function. The main issue is the tumor burden in his abdomen and the infection associated with the tumor burden. Agree with IV antibiotics. Agree with drain. Would like to see a little bit less drainage coming out, but I think we are getting better with the infection. May need to consider repeat CT scan here in the near future. Otherwise continue current treatment. cc: Juanito Drake MD MTDD
[2019-10-15] MEDS: THERA M PLUS PO SCH (09:21)
--- NOTE | 2019-10-15 12:16 | PROGRESS NOTE ---
DATE: 10/15/2019 SUBJECTIVE: This morning Mr. Kenyon refers to be doing well. He said he has had a bowel movement today. Denies any acute problem. He was actually having his lunch at the time of the encounter. OBJECTIVE: Vital signs: Blood pressure 113/56, pulse 77, respirations 14, and temperature 98.6 degrees. Patient is saturating 100% on room air. General: Mr. Kenyon is a 18-year-old gentleman. He is in bed. He looks emaciated and chronically ill. HEENT: Mucosa is pink and moist. Anicteric. Acyanotic. Neck: Supple. Chest: Good air entry bilaterally. I did not hear any crepitations. No rhonchi. No accessory muscle use. Cardiovascular: Regular rate and rhythm. GI: Abdomen is soft. There is a midline surgical incision which has yara which is affronted with yara. There is a mild area where it seems to be exuding minimum purulence. There is a right-sided CARMEN drain in place. MULTIFOLD OPERATOR: Patient is awake, alert, and oriented. There is no focal deficit. LABORATORY DATA: WBC is up to 20.86, hemoglobin of 8.3, and platelet count of 679,000. Chemistry is also reviewed, and is unremarkable. MEDICATIONS: Current medications have all been reviewed. No changes. CULTURES: The patient's abdominal culture from the 9 of this morning did show E coli, which seems to be pansensitive. ASSESSMENT: 1. Sepsis secondary to intra-abdominal abscess with E. Coli peritonitis. The patient has a CT- guided drain placement. He is currently on cefazolin. Unfortunately, his white cell count has gone up slightly this morning. I will switch him to Levaquin with anticipation that he goes home on the oral formulation. 2. Anemia of chronic disease. Patient is status post 1 PRBC transfusion. Hemoglobin and hematocrit is stable. 3. Diffuse large B-cell lymphoma Burkitt type. 4. Bilateral hydronephrosis due to large pelvic mass. Patient is status post cystoscopy with bilateral ureteral stent placement by Urology. 5. Status post hemicolectomy, debulking of Burkitt cell lymphoma. Today is day 15 postop. 6. Protein calorie malnutrition. Patient is on diet supplement. In general, I think Mr. Kenyon is fairly stable. He is tolerating his diet, and he has had a bowel movement. I have switched him to Levaquin with anticipation of discharging him on this p.o. formulation. We will wait on surgery for further recommendations with the management of the drain. cc: Ezra Lawrence MD MTDD
[2019-10-15] MEDS: LEVAQUIN 500 MG/D5W 500 MG/100 ML IVPB IV SCH (13:34)
[2019-10-15] MEDS: OXYCODONE PO PRN ×2 (13:34→21:29)
[2019-10-16] MEDS: DILAUDID IV PRN ×3 (00:16→11:28)
[2019-10-16] MEDS: OXYCODONE PO PRN ×4 (02:27→20:16)
[2019-10-16] MEDS: LOVENOX SUBQ SCH (05:10)
[2019-10-16] MEDS: PRILOSEC PO SCH ×2 (05:10→08:04)
--- NOTE | 2019-10-16 05:54 | GENERAL SURGERY PROGRESS NOTE ---
DATE: 10/16/2019 SUBJECTIVE: The patient seems to be doing okay. Nursing reports that he has been pulling at some of his drains. His drain still has a good amount of output out of it. OBJECTIVE: Vital Signs: The patient is currently afebrile. Vital signs are stable. General: No acute distress. Cardiovascular: Regular rate and rhythm. Lungs: Grossly clear. Abdomen: Soft. Some drainage from the lower aspect of the incision but the majority of the incision seems to be healing well, Accordion drain with 230 mL of purulence recorded out. LABORATORY: None at the time of dictation. ASSESSMENT AND PLAN: A 18-year-old gentleman status post exploratory laparotomy, right hemicolectomy, and debulking of tumor. Postoperative state: At this time, postoperatively seems to be doing okay. We will try to wean him off some of his pain medicine. We will keep the accordion drain in place. May consider repeat CT scan tomorrow to see how much fluid we have drained, but he still has 230 coming out. We will remove his yara and continue to follow. Continue on the antibiotics. cc: Juanito Drake MD
[2019-10-16 07:06] LABS: BASO# 0.06 X1000 (0.0-0.2); BASO% 0.7 % (0.0-0.8); EOS# 0.13 X1000 (0.0-0.7); EOS% 1.4 % (0.0-10.0); HEMATOCRIT 26.2 % (42.0-52.0); HEMOGLOBIN 7.9 g/dL (14.0-18.0); IMM GRAN# 0.05 X1000 (0.0-0.04); IMM GRAN% 0.5 % (0.0-0.5); LYMPH# 2.06 X1000 (1.2-3.4); LYMPH% 22.6 % (20.5-51.1); MCH 26.1 PG (27-31); MCHC 30.2 g/dL (33-37); MCV 86.5 FL (81-99); MONO# 2.08 X1000 (0.11-0.59); MONO% 22.9 % (1.7-9.3); MPV 8.4 FL (7.4-10.4); NEUT# 4.72 X1000 (1.4-6.5); NEUT% 51.9 % (42.2-75.2); PLT 655 X1000 (130-400); RBC 3.03 XMIL (4.7-6.1); RDW 15.8 % (11.5-14.5)
[2019-10-16 07:27] LABS: AGAP 10; BUN 8 mg/dL (8-22); CALCIUM 8.7 mg/dL (8.8-10.2); CHLORIDE 95 mmol/L (98-107); COSMO 266; CREATININE 0.4 mg/dL (0.7-1.2); ESTIMATED GFR > 60; GLUCOSE 89 mg/dL (70-104); POTASSIUM 4.2 mmol/L (3.5-5.1); SODIUM 134 mmol/L (136-145); TCO2 29 mmol/L (25-35)
[2019-10-16 07:30] LABS: EOS 1 % (1-10); LYMPHS 21 % (21-51); MONO 14 % (1-9); SEGS 64 % (42-75)
[2019-10-16] MEDS: THERA M PLUS PO SCH (08:04)
[2019-10-16] MEDS: LEVAQUIN 500 MG/D5W 500 MG/100 ML IVPB IV SCH (11:28)
--- NOTE | 2019-10-16 13:26 | PROGRESS NOTE ---
DATE: 10/16/2019 SUBJECTIVE: I have seen and examined Mr. Kenyon this morning. Mr. Kenyon refers to be doing well. No new complaints. He did have lot of concerns about his diagnosis and long-term management and prognosis. OBJECTIVE: Vital Signs: Blood pressure 98/57, pulse of 75, respiration of 18, temperature 98.3 degrees. General: Mr. Kenyon is a 18-year-old gentleman. He is in bed. No distress. Mucosa is pink and moist. Anicteric. Acyanotic. Neck: Neck is supple. Chest: Clear to auscultation. Cardiovascular: Regular rate and rhythm. Abdomen: Soft. The surgical incision yara have been removed. There is a small area in the lower abdomen that is still extruding some mild purulence. There is a CARMEN drain still in place on the right side of the lower abdomen. Central Nervous System: Patient is awake, alert, and oriented. There is no focal deficit. The intra-abdominal CARMEN drain is documented to have 230 in a 24-hour period. ASSESSMENT: 1. Sepsis secondary to intra-abdominal abscess with peritonitis. The patient is status post CT- guided drain placement. He is currently on Levaquin. There is a repeat of the CT scan tomorrow to follow up on the findings. We will defer the timing of the Liu-High catheter removal to the surgery colleagues. 2. Anemia of chronic disease. Patient is status post 1 unit of packed red blood cells during the hospital course. Hemoglobin and hematocrit is stable. 3. Diffuse large B-cell lymphoma. Burkitt type. The patient has been seen by Dr. Mireles. Unfortunately, I understand he will need to be in a tertiary institution for adequate treatment; however, now that he has an intra-abdominal abscess, that will have to be on hold. 4. Bilateral hydronephrosis due to Burkitt lymphoma. The patient is status post cystoscopy with bilateral ureteral stent placement by Urology. 5. Status post hemicolectomy for debulking of Burkitt cell lymphoma. Today is day 16 postop. The patient is doing well. He is eating and having regular bowel movement. 6. Protein calorie malnutrition. Patient is on diet supplement. In general, I think Mr. Kenyon is doing well. White cell count this morning has normalized. We will get a CT scan of the abdomen to follow up on the abscess and hopefully get him discharged soon. I will plan to discharge him on oral Levaquin. cc: Ezra Lawrence MD Addendum: I spoken with [facility] in [place] and they will look into his eligibility and get back to me. MTDD
[2019-10-17] MEDS: OXYCODONE PO PRN ×6 (00:43→23:00)
[2019-10-17] MEDS: LOVENOX SUBQ SCH (05:08)
[2019-10-17] MEDS: PRILOSEC PO SCH ×2 (05:08→06:05)
--- NOTE | 2019-10-17 05:59 | GENERAL SURGERY PROGRESS NOTE ---
DATE: 10/17/2019 SUBJECTIVE: The patient seems to be doing okay. Apparently he has been picking at his incision. His CARMEN accordion drain still has over [address] scan ordered for this morning. OBJECTIVE: Vitals: The patient is currently afebrile. Vital signs are stable. General: No acute distress. Cardiovascular: Regular rate and rhythm. Lungs: Grossly clear. Abdomen: Soft, appropriately tender. Incision seems to be healing except over a small area on the inferior aspect, which is open but otherwise doing fine. ASSESSMENT/PLAN: A 18-year-old status post open right hemicolectomy and debulking of Burkitt cell lymphoma tumor. Postoperative state: At this time his white blood cell count had trended down yesterday to 9 after reviewing his labs. I have ordered a CT scan for this morning to evaluate how much left his drain has to drain. It has drained at least over 400 in the last 24 to 48 hours. We will continue to monitor him closely. Continue current treatment. cc: MD RACHEL Luna
[2019-10-17 07:32] LABS: PHOSPHORUS 5.2 mg/dL (2.7-4.5)
[2019-10-17 08:22] LABS: URIC ACID 2.9 mg/dL (3.4-7.0)
--- NOTE | 2019-10-17 10:03 | Diag Imaging Result Doc PS360 ---
CT ABD/PELVIS W/IV CONT ONLY - 10/17/2019 INDICATION: follow up on intrabdomen abcess COMPARISON: 10/09/2019 FINDINGS: There is been significant decrease in the small left pleural effusion. No new infiltrates in the lung bases. There is a percutaneous drainage catheter in the right lower quadrant. There is still a moderate amount of ascites throughout the abdomen and pelvis. There is a huge pelvic mass. There are bilateral nephroureteral stents in good position. There is severe constipation throughout the colon diffusely. There is moderate body wall edema. IMPRESSION: 1. Significant ascites in spite of a drainage catheter in the right lower quadrant. 2. Severe constipation. 3. Significant decrease in the left pleural effusion. This exam was performed using automated exposure control, adjustment of mA or kV according to patient size, and/or use of iterative reconstruction technique Electronically signed by Martinez Baker 10/17/2019 10:01 AM
--- NOTE | 2019-10-17 11:52 | PROGRESS NOTE ---
DATE: 10/17/2019 SUBJECTIVE: I have seen and examined Mr. Kenyon today. He refers to be feeling okay, was just concerned about what is going to be his prognosis and the care once he gets discharged. OBJECTIVE: Vital Signs: Blood pressure of 98/64, pulse of 90, respirations are 16, temperature is 98.2 degrees, the patient is saturating 97% on room air. General Examination: Mr. Kenyon is a 18-year-old, gentleman. He was sitting in the bed. No distress. HEENT: Mucosa is pink and moist. Anicteric. Acyanotic. He looks remarkably wasted and chronically ill-looking. Chest: Clear to auscultation. No crepitations. No rhonchi. Cardiovascular: Regular rate and rhythm. GI: Abdomen was soft. There is a surgical incision in the mid lower abdomen. Michael have been removed. There is a small area in the incision line in the lower abdomen that has spontaneous draining which looked purulent. GUIDANCE COUNSELOR: The patient is awake, alert, and oriented. Laboratory Data: None for this morning. Patient's uric acid is 2.9, phosphorus of 5.9, lactate dehydrogenase of 264. Diagnostic Studies: A CT scan of the abdomen and pelvis which was done today continues to suggest significant ascites in spite of drainage catheter in the right lower abdomen. There is severe constipation. There is also a decrease in the left pleural effusion. ASSESSMENT: 1. Diffuse large B-cell lymphoma, Burkitt type. The patient is status post exploratory laparotomy with tumor debulking and also a right hemicolectomy. 2. Sepsis secondary to intra-abdominal abscess with Escherichia coli peritonitis. The patient has a drain in place. He is currently on oral Levaquin. A CT scan continues to show remarkable amount of fluid in the intra-abdominal space. We will wait for surgery to re- evaluate. 3. Anemia of chronic disease. Patient is status post 1 unit of packed red blood cell transfusion. 4. Bilateral hydronephrosis due to external compression from the intra-abdominal mass. The patient is status post cystoscopy with bilateral ureteral stent placement by urology. 5. Protein calorie malnutrition. Patient is on diet supplement. 6. Generalized wasting and weakness due to underlying malignancy. 7. Severe constipation, presumably from immobility and narcotic use. We will encourage Mr. Kenyon to be more active, walking around, and we will continue with bowel regimen. 8. Huge pelvic mass, presumably part of the Burkitt lymphoma. The patient will eventually need tertiary care for the treatment of his lymphoma. Unfortunately, according to Dr. Mireles, we cannot take care of this over here. I have been in communication with [facility] and they are looking into his eligibility into their program for treatment. Disposition is going to depend on further recommendations from surgery and the management of the intra-abdominal abscess. cc: Ezra Lawrence MD MTDD
[2019-10-17] MEDS: LEVAQUIN PO SCH (12:05)
[2019-10-17] MEDS: THERA M PLUS PO SCH (12:06)
--- NOTE | 2019-10-17 16:25 | HEMO/ONC PROGRESS NOTE ---
DATE: 10/17/2019 CHIEF COMPLAINT: The patient has no new complaints. PHYSICAL EXAMINATION: Vital Signs: Temperature 98.5 degrees, blood pressure 105/55, heart rate 89, respirations 18, O2 saturation is 100% on room air. HEENT: Normocephalic, atraumatic. Mucous membranes pale and moist. Sclerae anicteric. Extraocular movements intact. Lungs: Respirations are nonlabored. CV: S1, S2. Abdomen: Nondistended. Michael intact with no redness or swelling at the incision site. Extremities: No clubbing, cyanosis, or edema. Dermatologic: No rashes, bruises, or lesions. Neurologic: The patient is awake, alert, and oriented x3. He has no focal deficit. LABORATORY DATA: The patient has no laboratory data for today. IMAGING STUDIES: CT of the abdomen and pelvis reveals significant ascites in spite of drainage catheter in the right lower quadrant, with severe constipation and significant decrease in left pleural effusion. ASSESSMENT AND PLAN: 1. High-grade B-cell lymphoma, Burkitt's. Treatment plan is pending. The patient is possibly a candidate for a clinical trial at [facility] in [place], [place]. We will continue to investigate. 2. Recurrent sepsis, intraabdominal abscess infection, positive for Escherichia coli. Currently on cefazolin. 3. Anemia, stable. Would transfuse if hemoglobin is less than 8.0 or for any active bleeding. 4. Protein calorie malnutrition. The patient continues on Ensure supplements, with multivitamins. 5. We will follow along with you and make further recommendations pending outcomes. The above reflects the history, exam, assessment, and plan of Dr. Mireles. Dictated by MIAH Kc for Topher Mireles MD cc: MIAH Kc MD
[2019-10-18] MEDS: OXYCODONE PO PRN ×5 (03:45→23:50)
--- NOTE | 2019-10-18 06:25 | GENERAL SURGERY PROGRESS NOTE ---
DATE: 10/18/2019 SUBJECTIVE: Patient seems to be doing okay. His repeat CT scan from yesterday did show some improvement in the abscess. His drainage amount has decreased. He is doing okay. OBJECTIVE: Vital Signs: Patient is currently afebrile. His vital signs are stable. General: No acute distress. Cardiovascular: Regular rate and rhythm. Lungs: Grossly clear. Abdomen: Soft. The drain in place with some purulence. Incision seems to be doing okay. Small opening in the lower aspect. No active drainage at this time. LABORATORY: Reviewed. White blood cell count from 2 days ago, which was 9. No labs yesterday. CBC has been ordered for this morning. CT scan independently reviewed and radiology report reviewed. ASSESSMENT AND PLAN: A 18-year-old gentleman status post exploratory laparotomy, right hemicolectomy, debulking of abdominal tumor. Postoperative state at this time. CT scan showed some improvement in the fluid collection. We will keep the drain in place at least through the weekend. We will keep him on his antibiotics. He has been switched over to Levaquin. We will add some MiraLAX because he is constipated on the CT scan. I do agree with potentially seeing if we can getting him over to [place] for research trial that could be pretty beneficial to the patient. I am not opposed if things can be arranged. We will continue to follow while he is in the hospital. cc: Juanito Drake MD
[2019-10-18] MEDS: PRILOSEC PO SCH (06:57)
[2019-10-18] MEDS: LOVENOX SUBQ SCH (06:57)
[2019-10-18 07:36] LABS: BASO# 0.05 X1000 (0.0-0.2); BASO% 0.5 % (0.0-0.8); EOS# 0.17 X1000 (0.0-0.7); EOS% 1.7 % (0.0-10.0); HEMATOCRIT 28.8 % (42.0-52.0); HEMOGLOBIN 8.6 g/dL (14.0-18.0); IMM GRAN# 0.06 X1000 (0.0-0.04); IMM GRAN% 0.6 % (0.0-0.5); LYMPH# 1.33 X1000 (1.2-3.4); LYMPH% 13.5 % (20.5-51.1); MCH 26.1 PG (27-31); MCHC 29.9 g/dL (33-37); MCV 87.3 FL (81-99); MONO# 1.79 X1000 (0.11-0.59); MONO% 18.1 % (1.7-9.3); MPV 8.5 FL (7.4-10.4); NEUT# 6.48 X1000 (1.4-6.5); NEUT% 65.6 % (42.2-75.2); PLT 814 X1000 (130-400); RDW 16.3 % (11.5-14.5); WBC 9.88 X1000 (4.8-10.8)
[2019-10-18 07:43] LABS: AGAP 11; BUN 9 mg/dL (8-22); CALCIUM 9.7 mg/dL (8.8-10.2); CHLORIDE 93 mmol/L (98-107); COSMO 264; CREATININE 0.5 mg/dL (0.7-1.2); ESTIMATED GFR > 60; GLUCOSE 84 mg/dL (70-104); MAGNESIUM 1.9 mg/dL (1.5-2.7); POTASSIUM 3.8 mmol/L (3.5-5.1); SODIUM 133 mmol/L (136-145); TCO2 29 mmol/L (25-35)
[2019-10-18] MEDS: THERA M PLUS PO SCH (10:16)
[2019-10-18] MEDS: LEVAQUIN PO SCH (10:16)
[2019-10-18] MEDS: MIRALAX PO SCH (10:16)
--- NOTE | 2019-10-18 14:47 | PROGRESS NOTE ---
DATE: 10/18/2019 SUBJECTIVE: I have seen and examined Mr. Kenyon today. Mr. Kenyon refers to be doing well. Still has some mild discomfort in the lower abdomen, but he remains afebrile. CARMEN drain continues to have purulent discharge in it. OBJECTIVE: Vital signs: Blood pressure 93/59, pulse of 108, respirations 17, temperature 98.7 degrees. General: Mr. Kenyon is a 18-year-old male. He was sitting in the chair, taking a dry bath. HEENT: Mucosa is pink and moist. Anicteric. Acyanotic. He looks remarkably wasted and chronically ill. Chest: Clear to auscultation. No crepitation, no rhonchi. Cardiovascular: Slightly tachycardic but no murmurs, no rubs, no gallops. Gastrointestinal: Abdomen is soft, minimally tenderness in the lower abdomen. There is a midline lower abdominal incision. Scobey have been removed. There is a small area of fistulization that is draining purulent material as well. Central nervous system: Patient is awake, alert, and oriented. There is no focal deficit. LABORATORY DATA: WBC is 9.88, hemoglobin of 8.6, platelet count of 804,000. Chemistry is also reviewed, unremarkable. ASSESSMENT: 1. Diffuse large B-cell lymphoma, Burkitt type. The patient is status post exploratory laparotomy with partial debulking of the mass and he is currently pending arrangement for adjuvant therapy. 2. Status post right hemicolectomy. 3. Sepsis secondary to intra-abdominal abscess with Escherichia coli peritonitis. The patient was on IV antibiotics since admission. This has been switched to p.o. Levaquin. Today is day 2 on p.o. Levaquin and we plan to treat for at least 2 weeks for the abscess. It might be even longer. 4. Anemia of chronic disease. Patient is status post 1 unit of packed red blood cells transfusion. Hemoglobin and hematocrit is stable. 5. Bilateral hydronephrosis due to external compression from the intra-abdominal mass. The patient is status post cystoscopy with bilateral stent placement by Urology. Today is day 18 after that surgery. 6. Protein calorie malnutrition. Patient is on diet supplementation. 7. Generalized wasting and weakness due to underlying malignancy and abscess. 8. Severe constipation secondary to immobility and narcotic use. The patient is on bowel regimen and has started making bowel movement. 9. Huge pelvic mass, presumably part of the Burkitt lymphoma. The patient has been being followed up by [facility] and will follow up with the arrangements for his adjuvant therapy. PLAN: In general, I think Mr. Kenyon is doing well and he is stable. A CT scan of the abdomen and pelvis which was done yesterday continues to show significant ascites in the abdomen, which I think is probably just the purulent material. We are going to continue with the CARMEN drain. We will continue with the current antibiotics and re-evaluate and follow up with further recommendations from Surgery and Heme-Onc. I understand there is arrangement ongoing for patient to go to [place] for the Burkitt lymphoma treatment. cc: Ezra Lawrence MD
[2019-10-19] MEDS: OXYCODONE PO PRN ×5 (05:11→22:11)
[2019-10-19] MEDS: PRILOSEC PO SCH ×2 (05:12→06:07)
[2019-10-19] MEDS: LOVENOX SUBQ SCH (05:12)
[2019-10-19] MEDS: THERA M PLUS PO SCH (09:57)
[2019-10-19] MEDS: LEVAQUIN PO SCH (09:57)
[2019-10-19] MEDS: MIRALAX PO SCH (09:57)
--- NOTE | 2019-10-19 11:24 | GENERAL SURGERY PROGRESS NOTE ---
DATE: 10/19/2019 SUBJECTIVE: The patient is doing well. He has mild pain, no nausea, vomiting, fever, or chills. He does have bowel movement yesterday. OBJECTIVE: He is afebrile. Vital signs are stable.General: He is awake, alert, oriented x3. No acute distress. GI: Soft, minimally tender, nondistended. His drain has thin purulent material. LABORATORY: None today. ASSESSMENT AND PLAN: A 18-year-old male with Burkitt's lymphoma, status post exploratory laparotomy and debulking and drainage of intra-abdominal abscess. He is making slow improvement. We will continue monitoring. No new changes today. cc: Inocencio Person MD
--- NOTE | 2019-10-19 14:17 | PROGRESS NOTE ---
DATE: 10/19/2019 Today Mr. Kenyon refers to be doing well, denies any new complaints. OBJECTIVE: Vitals: Stable. Blood pressure 100/56, pulse of 74, respiration is 18, temperature 98.2 degrees. General: Mr. Kenyon 18-year-old male. He was in bed no distress. Mucosa is pink and moist. Anicteric. Acyanotic. Neck: Supple. He looks remarkably wasted and chronically ill looking. Chest: Clear to auscultation. No crepitations, no rhonchi. Cardiovascular: Regular rate and rhythm. Abdomen: Soft. There is an abdominal incision on the mid lower abdomen which is well affronted, yara have been removed. The lower part of the incision is open and it is draining some purulent material. There is a CARMEN drain on the right side of the abdominal wall. ROUTE INSPECTOR: Patient is awake and alert. I's and O's. The accordion drain was documented just 60 mL in 24 hours. ASSESSMENT: 1. Diffuse large B-cell lymphoma Burkitt type. Patient is status post exploratory laparotomy with partial debulking of the mass, currently pending adjuvant therapy arrangements. 2. Status post right hemicolectomy. Today is day 19 postop. 3. Intraabdominal abscess with Escherichia coli peritonitis. Patient is currently on p.o. Levaquin. Will continue to monitor the output from the accordion drain. 4. Anemia of chronic disease. Patient is status post 1 packed red blood cell transfusion during the hospital course, hemoglobin and hematocrit is stable. 5. Bilateral hydronephrosis due to external compression from the intraabdominal lymphoma. Patient is status post cystectomy with bilateral stent placement, today is day 19 of the urological procedure as well. 6. Protein calorie malnutrition. Will continue with supplements. 7. Generalized weakness and wasting due to underlying malignancy and abscess. 8. Constipation. Will continue with bowel regimen. 9. Residual huge pelvic mass presumably part of the Burkitt lymphoma. Patient is pending adjuvant therapy. So in general I think Mr. Kenyon is fairly stable. He denies any new complaints. The Liu-High drain in the abdomen continues to be draining and patient also has spontaneous drain in the lower part of the abdominal wall incision. Vitals are stable, no fever and white cell count is also normalized. We are going to continue with the Levaquin therapy. 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 MTDD
[2019-10-20] MEDS: OXYCODONE PO PRN ×5 (02:18→23:00)
[2019-10-20] MEDS: LOVENOX SUBQ SCH (06:02)
[2019-10-20] MEDS: PRILOSEC PO SCH (06:02)
--- NOTE | 2019-10-20 08:35 | GENERAL SURGERY PROGRESS NOTE ---
DATE: 10/20/2019 SUBJECTIVE: The patient is doing well. No new complaints. He is tolerating a diet and having bowel movements. OBJECTIVE: Vital Signs: He is afebrile. Vital signs are stable. General: He is awake, alert, and oriented x3. No acute distress. GI: Soft, nontender, nondistended. Lower midline wound is granulating some. His drain in the right lower quadrant has thin, purulent material. LABORATORY DATA: None today. ASSESSMENT AND PLAN: A 18-year-old male with Burkitt's lymphoma, status post exploratory laparotomy and debulking, with drainage of intra-abdominal abscess. He is slowly improving. I encouraged protein shake intake. No new recommendations. cc: Inocencio Person MD
[2019-10-20] MEDS: SANTYL OINT TOP SCH (10:04)
[2019-10-20] MEDS: LEVAQUIN PO SCH (10:05)
[2019-10-20] MEDS: THERA M PLUS PO SCH (10:05)
[2019-10-20] MEDS: MIRALAX PO SCH (10:05)
[2019-10-20] MEDS ORDERED: DILAUDID IM ONE (11:04)
--- NOTE | 2019-10-20 13:28 | PROGRESS NOTE ---
DATE: 10/20/2019 SUBJECTIVE: I have seen and examined Mr. Kenyon today. He refers to be doing okay, except some abdominal discomfort. CARMEN drain continues to be draining pus. OBJECTIVE: Vital Signs: Blood pressure 104/58, pulse of 89, respirations 16, temperature 98.6 degrees. General: Mr. Kenyon is a 18-year-old, gentleman. He is in bed. No distress. He looks chronically ill. Chest: Clear to auscultation. No crepitations. No rhonchi. Cardiovascular: Regular rate and rhythm. GI: Abdomen is soft. The surgical incision site has some open dehiscence in the lower abdomen, which is also draining pus. There is a CARMEN drain on the right side of the abdominal wall. REPEATER OPERATOR: The patient is awake, alert, and oriented. The output from the accordion drain from yesterday was 60 mL in 24 hours. ASSESSMENT: 1. Diffuse large B-cell lymphoma, Burkitt's type. 2. Status post right hemicolectomy with partial debulking of intra-abdominal lymphoma. The patient is day 20 postoperative. 3. Intra-abdominal abscess with Escherichia coli peritonitis. The patient is currently on oral Levaquin. 4. Anemia of chronic disease. 5. Bilateral hydronephrosis due to external compression from the intra-abdominal lymphoma. The patient is status post cystoscopy with bilateral stent placement. Today is day 20. 6. Protein calorie malnutrition. Will continue with supplements. 7. Generalized weakness and wasting syndrome. 8. Constipation, improved with bowel regimen. 9. Residual huge pelvic mass from the Burkitt's lymphoma. The patient is pending adjuvant therapy arrangements. In general, I think Mr. Kenyon is doing well. We are going to continue with the antimicrobial coverage. The Liu-High drain seems to be progressively getting smaller and smaller. Will follow up with further recommendations from both Surgery and Hematology/Oncology tomorrow. cc: Ezra Lawrence MD
[2019-10-21] MEDS: OXYCODONE PO PRN ×6 (02:57→23:45)
--- NOTE | 2019-10-21 06:29 | GENERAL SURGERY PROGRESS NOTE ---
DATE: 10/21/2019 SUBJECTIVE: Patient seems to be doing okay. Reviewed the notes from the weekend. OBJECTIVE: Vital Signs: Patient is currently afebrile. Vital signs are stable. General: No acute distress. Cardiovascular: Regular rate and rhythm. Lungs: Grossly clear. Abdomen: Soft. Appropriately tender. Incision: A little bit more separation of the skin in the lower aspect. Bowel sounds auscultated. Accordion drain with very minimal purulent drainage. LABORATORY: None this morning as of yet. ASSESSMENT AND PLAN: A 18-year-old gentleman status post exploratory laparotomy for debulking of Burkitt cell lymphoma. 1. Postoperative state. At this time, the patient seems to be doing okay. We will get the nurses to do Vashe wet-to-dry dressing changes in addition to the Santyl. We will continue to monitor him. From a surgical point of view, he has had return of bowel function. We will keep his Liu-High drain in place. The output overall is decreasing. 2. Disposition. At this time, we will defer to case management and Oncology to see if he can actually go to a clinical trial in [place]. cc: Juanito Drake MD
[2019-10-21] MEDS: LOVENOX SUBQ SCH ×2 (06:59→07:00)
[2019-10-21] MEDS: PRILOSEC PO SCH (06:59)
[2019-10-21 07:00] LABS: HEMATOCRIT 25.6 % (42.0-52.0); HEMOGLOBIN 7.9 g/dL (14.0-18.0); MCH 27.1 PG (27-31); MCHC 30.9 g/dL (33-37); MCV 87.7 FL (81-99); MPV 8.5 FL (7.4-10.4); RBC 2.92 XMIL (4.7-6.1); RDW 16.2 % (11.5-14.5); WBC 10.07 X1000 (4.8-10.8)
[2019-10-21 07:26] LABS: AGAP 10; ALBUMIN 2.7 g/dL (3.5-5.0); BUN 8 mg/dL (8-22); CALCIUM 9.5 mg/dL (8.8-10.2); CHLORIDE 96 mmol/L (98-107); COSMO 272; CREATININE 0.5 mg/dL (0.7-1.2); ESTIMATED GFR > 60; GLUCOSE 92 mg/dL (70-104); PHOSPHORUS 5.1 mg/dL (2.7-4.5); POTASSIUM 4.3 mmol/L (3.5-5.1); SODIUM 137 mmol/L (136-145); TCO2 31 mmol/L (25-35)
[2019-10-21] MEDS: SANTYL OINT TOP SCH (08:21)
[2019-10-21] MEDS: LEVAQUIN PO SCH (08:21)
[2019-10-21] MEDS: THERA M PLUS PO SCH (08:21)
[2019-10-21] MEDS: MIRALAX PO SCH (08:21)
--- NOTE | 2019-10-21 13:34 | PROGRESS NOTE ---
DATE: 10/21/2019 SUBJECTIVE: I have seen and examined Mr. Kenyon this morning. He refers to be doing well. Denies any new complaints. OBJECTIVE: Current vitals: Blood pressure 99/59, pulse of 92, respiration is 19, temperature is 99.4 degrees. General exam: Mr. Kenyon is a 18-year-old male. He is in bed, no distress. HEENT: Mucosa is pink and moist. Anicteric. Acyanotic. He looks remarkably wasted and chronically ill. Chest: Good air entry bilateral. There was no crepitations, no rhonchi. Cardiovascular: Regular rate and rhythm. There were no murmurs, no rubs, no gallops. GI/abdomen: Soft. There is a surgical incision site on the lower abdomen with some small area of dehiscence in the lower part of the incision which is draining. There is a CARMEN drain on the right side of the abdominal wall. WARRANT SERVER: Patient is awake, alert and oriented. There is no focal neurological deficit. LABORATORY DATA: WBC is 10.07, hemoglobin of 7.9, platelet count of 579. Chemistry is also reviewed; is completely within normal range. INTAKE/OUTPUT: The drainage from the CARMEN is 50. ASSESSMENT: 1. Diffuse large B-cell lymphoma. The patient is status post right hemicolectomy with partial debulking of the intra-abdominal lymphoma. Today is day 21 postoperative. 2. Intra-abdominal abscess with Escherichia coli peritonitis. The patient is on Levaquin. Liu-High drain still in place; seems to be draining less every day. 3. Anemia of chronic disease. 4. Bilateral hydronephrosis due to external compression from the intra-abdominal lymphoma. The patient is status post cystoscopy with bilateral stent placement. 5. Protein calorie malnutrition. We will continue with supplements. 6. Generalized weakness and wasting syndrome. 7. Constipation improved with bowel regimen. 8. Residual large pelvic mass from Burkitt lymphoma. The patient is pending adjuvant therapy arrangements. PLAN: So, in general, I think Mr. Kenyon is as stable as we can get him in the hospital. I have discussed his care with Dr. Drake, and he prefers to see less drain from the accordion drain before he is discharged, and he plans probably to remove the drain in the next few days. Mr. Kenyon is also pending arrangements from Hem-Onc standpoint about a trial in [place] at [facility]. This is in the working process and we are not 100% sure if it is going to be approved while he is still in the hospital. Mr. Kenyon is being followed up by Dr. Mireles, and he is in contact with [facility] for this arrangement. I think whenever we have the adjuvant therapy arrangement done and surgery is okay with the output from the drain, Mr. Kenyon can be discharged. His final disposition will depend on the subspecialties final recommendations. Mr. Kenyon is currently on Levaquin for the coverage of the intra-abdominal E coli abscess. cc: Ezra Lawrence MD
[2019-10-21] MEDS ORDERED: DILAUDID IV PRN (18:04)
[2019-10-22] MEDS: PRILOSEC PO SCH ×2 (04:54→06:07)
[2019-10-22] MEDS: OXYCODONE PO PRN (04:54)
[2019-10-22] MEDS: LOVENOX SUBQ SCH (05:43)
--- NOTE | 2019-10-22 06:54 | GENERAL SURGERY PROGRESS NOTE ---
DATE: 10/22/2019 SUBJECTIVE: The patient seems to be doing okay. No major issues. OBJECTIVE: Vital Signs: The patient is currently afebrile. His temperature max is 100.8. Temperature current 98.3. His vital signs are stable. General: No acute distress. Cardiovascular: Regular rate and rhythm. Lungs: Grossly clear. Abdomen: Soft, appropriately tender. Incision is essentially unchanged. Accordion drain with minimal output. LABORATORY DATA: Reviewed from yesterday. White blood cell count was 10. ASSESSMENT AND PLAN: A 18-year-old gentleman status post exploratory laparotomy and debulking of Burkitt cell lymphoma. Postoperative state. At this time, he had a low-grade fever, but his white blood cell count is normal. His Liu-High drain output is decreasing dramatically, so likely if it remains low, pull it tomorrow. Hopefully, he could be discharged after that. I think overall, he is doing okay. Will just monitor his temperature. cc: Juanito Drake MD
[2019-10-22 07:03] VITALS: BP 110/69
--- NOTE | 2019-10-22 07:50 | DISCHARGE SUMMARY ---
ADMISSION DATE: 09/29/2019 DISCHARGE DATE: 10/22/2019 DISPOSITION: [facility] in [place]. CONSULTATIONS DURING ADMISSION: 1. Surgery was consulted. Patient was seen by Dr. Drake. 2. Urology was consulted. Patient was seen by Dr. Guzmán. INVASIVE PROCEDURES DONE DURING ADMISSION: 1. Exploratory laparotomy, right hemicolectomy with stapled [id number] functional end-to-end anastomosis, tumor debulking and rigid proctoscopy was done by Dr. Drake on 09/30/2019. 2. Cystoscopy with bilateral retrograde pyelograms and bilateral ureteral stent placement done by Dr. Guzmán on 09/30/2019. IMAGING STUDIES OF SIGNIFICANCE: 1. A CT scan of the abdomen and pelvis with contrast done on 09/29/2019 showed a very large mass that appears to arise from the wall of a loop of small bowel involving the lower abdomen and pelvis that is causing at least a partial bowel obstruction, and is obstructing both ureters resulting in hydronephrosis bilateral. 2. Echocardiogram showed an ejection fraction of 55%. A bone scan was negative. A CT scan of the chest showed trace pleural effusion, no suspicious findings in the chest. 3. A repeat CT scan of the abdomen with IV contrast showed small bowel dilation compatible with postoperative ileus, bowel obstruction, free fluid, severe body wall edema, postoperative free air. 4. A repeat CT scan of the chest on 10/05/2019 showed no evidence of pneumonia. A repeat CT scan of the abdomen and pelvis on 10/09/2019 showed interval increase in the size of the large loculated collection of fluid in the pelvis. There are also persistent loops of small bowel. There were bilateral ureteral stents in the ureter. 5. A CT-guided biopsy and drainage was done on 10/10/2019. A repeat CT scan of the abdomen and pelvis done on 10/17/2019 showed significant ascites in spite of a drainage in right lower quadrant, severe constipation, and decrease in the left pleural effusion. ADMISSION DIAGNOSES: 1. Small bowel obstruction. 2. Anemia. 3. Obstructive uropathy. DIAGNOSES AT TIME OF DISCHARGE: 1. Diffuse large B-cell lymphoma, Burkitt type. The patient is status post right hemicolectomy with partial debulking of the intra-abdominal lymphoma. Today is day 21 postoperative. 2. Intra-abdominal abscess with E. Coli peritonitis. CARMEN drain is in place. The patient is on Levaquin. 3. Anemia of chronic disease. 4. Bilateral hydroureteronephrosis due to external compression from intra- abdominal lymphoma. Patient is status post cystoscopy with bilateral stent placement. 5. Protein calorie malnutrition. 6. Generalized weakness and wasting syndrome. 7. Constipation. 8. Residual large pelvic mass from Burkitt lymphoma. DISCHARGE MEDICATIONS: At the time of the discharge, the patient was on: 1. Tylenol p.r.n. 2. Lovenox 30 mg subcutaneously daily. 3. Dilaudid p.r.n. 4. Levaquin 500 p.o. daily. 5. Multivitamins. 6. Omeprazole 20 mg p.o. daily. 7. Oxycodone 10 mg p.o. q.4 p.r.n. 8. MiraLAX 17 g p.o. daily. PRESENTING COMPLAINT: Right lower quadrant pain. HISTORY OF PRESENT COMPLAINT: Mr. Kenyon is a 18-year-old gentleman with no previous history, who comes in with lower abdominal pain of acute onset associated with nauseation. Upon presenting, he was evaluated. Imaging Studies were done which revealed partial small bowel obstruction, intra-abdominal mass, and obstructive uropathy. Mr. Kenyon was admitted to the medical floor for further treatment. He was started on IV antibiotics. Surgery was consulted. Patient was seen by Dr. Drake as well as Urology was seen by Dr. Guzmán. A decision was made to intervene, which was successfully done by both surgeons. Postoperatively, Mr. Kenyon's progress was a very slow one complicated with poor nutritional status. The intraperitoneal space got infected. A CARMEN drain under CT guidance was done. Culture from the past revealed E. Coli. The patient was initially on IV broad-spectrum antibiotics. This was narrowed down to IV Levaquin, and transitioned to p.o. His white cell count has gone from 26,000 on admission to normalized. This morning it was 10.07. He has been afebrile. The pathology report from the mass shows B-cell lymphoma, high-grade fever, Burkitt. The terminal ileum and the right colon resection also has B-cell lymphoma, high-grade favor Burkitt lymphoma. The patient was evaluated by Dr. Mireles who is an oncologist over here. Unfortunately, he said this type of cancer cannot be treated in our facility so we reached out to [facility], who has graciously accepted Mr. Kenyon for treatment. I have been in constant communication with them as well. I have spoken to Guillermo Garcia today. I have also spoken with Ms. Criselda An There are arrangements all set up for Mr. Kenyon to be transferred from the hospital here tomorrow in an ambulance to [place] tomorrow for adjuvant therapy evaluation. TIME SPENT: Time spent for discharge is 1 hour. cc: Ezra Lawrence MD MTDD
--- NOTE | 2019-10-22 14:22 | PROGRESS NOTE ---
DATE: 10/22/2019 It looks like Mr. Kenyon already had a discharge order placed by previous physician, and he had been transferred out of [facility] to an outside hospital before I could see him. cc: Thai Ramos MD
== END 2019-10-22 07:16 | disposition short-term general hospital (02) | DRG 820 ==
LOC: P.ED 15:59 → SUATTDRO 20:39 → 2N 20:39 → 4N 10-01 18:37 → ICU 10-05 14:49 → 4N 10-06 20:25
PROVIDERS: ATTEND Internal Medicine